=== PATIENT | female | born 1940 | race Caucasian/White ===

== ENCOUNTER 2017-03-28 14:21 | Emergency (ER) | payer MEDICARE ==
[~2017-03-28] VITALS: Ht 147.3 cm; Wt 50.0 kg
[~2017-03-28 14:21] MED LIST: ADLT ASA LOW81 MG PO; BENAZEPRIL40 M1 PO; ELAVIL50 MG PO; MAXZIDE-25MG1 COMBO PO; TENORMIN50 MG PO
[2017-03-28 15:02] LABS: HEMATOCRIT 47.2 % (37.0-47.0); HEMOGLOBIN 15.5 g/dl (12.0-16.0); IMMATURE GRANULOCYTES 0.3 % (0.0-1.0); MEAN CELL VOLUME 92.7 fL CALC (80.0-100.0); MEAN CORPUSCULAR HGB 30.5 pG CALC (26.0-32.0); MEAN CORPUSCULAR HGB CONC 32.8 g/L CALC (32.0-36.0); NEUT# 6.93 thou/uL (2.00-7.15); RED BLOOD COUNT 5.09 mill/uL (4.20-5.60); RED CELL DISTRI WIDTH 12.8 % (11.5-15.5)
[2017-03-28 15:43] LABS: ALBUMIN 3.6 g/dL (3.2-5.0); ALKALINE PHOSPHATASE 74 u/l (38-126); AMYLASE 71 u/l (30-110); ANION GAP 14 (6-22 (CALC)); BILIRUBIN, TOTAL 0.5 mg/dL (0.0-1.4); BUN 17 mg/dL (8-23); BUN/CREATININE RATIO 18 (12-20 (CALC)); CARBON DIOXIDE 25 mmol/l (22-30); CHLORIDE 106 mmol/l (95-108); GFR 54 ML/MIN (>=60 (CALC)); GFR FOR AFR.AMER. > 60 ML/MIN (>=60 (CALC)); GLUCOSE 86 mg/dL (82-115); LIPASE 81 u/l (23-300); POTASSIUM 4.3 mmol/l (3.5-5.1); SGOT/AST 33 u/l (9-36); SGPT/ALT 34 u/l (11-66); SODIUM 141 mmol/l (137-146); TOTAL PROTEIN 6.3 g/dL (6.3-8.2)
[2017-03-28 15:55] LABS: MYOGLOBIN 61 ng/mL (0 - 62)
[2017-03-28] MEDS ORDERED: ZOFRAN ODT4 MG PO (15:57)
[2017-03-28] MEDS ORDERED: CIPROFLOXACN500 MG PO (17:37)
[2017-03-28] MEDS ORDERED: METRONIDAZOL500 MG PO (17:37)
[2017-03-28 17:41] VITALS: BP 137/74
== END 2017-03-28 17:58 | disposition home or self-care (01) ==
LOC: ED 14:21
PROVIDERS: Emergency Medicine
DX: K57.92 Diverticulitis of intestine, part unspecified, without perforation or abscess without bleeding (principal); K52.9 Noninfective gastroenteritis and colitis, unspecified; R11.2 Nausea with vomiting, unspecified; R10.32 Left lower quadrant pain; I10 Essential (primary) hypertension

== ENCOUNTER 2021-05-17 13:47 | Observation (INO) | payer MEDICARE ==
[~2021-05-17 13:47] MED LIST changes: +CIPROFLOXACN500 MG PO; +LOMOTIL2.5 MG PO; +METRONIDAZOL500 MG PO; +ZOFRAN ODT4 MG PO
--- NOTE | 2021-05-17 13:48 | NUR ---
PT TO ROOM FOR TRIAGE VIA EMS STRETCHER.
--- NOTE | 2021-05-17 14:45 | NUR ---
PT RESTING. STABLE ON MONITOR. NO CONCERNS VOICED. CALL LIGHT WITHIN REACH.
[2021-05-17 15:22] LABS: HEMATOCRIT 40.5 % (37.0-47.0); IMMATURE GRANULOCYTES 0.2 % (0.0-5.0); MEAN CELL VOLUME 94.6 fL CALC (80.0-100.0); MEAN CORPUSCULAR HGB 30.4 pG CALC (26.0-32.0); MEAN CORPUSCULAR HGB CONC 32.1 g/dL CAL (32.0-36.0); NEUT# 11.05 thou/uL (2.00-7.15); RED BLOOD COUNT 4.28 mill/uL (4.20-5.60); RED CELL DISTRI WIDTH 12.5 % (11.5-15.5)
[2021-05-17 15:42] LABS: ALBUMIN 3.6 g/dL (3.2-5.0); ALKALINE PHOSPHATASE 95 u/l (38-126); BUN 33 mg/dL (8-23); BUN/CREATININE RATIO 18 (12-20 (CALC)); CARBON DIOXIDE 27 mmol/l (22-30); CHLORIDE 103 mmol/l (95-108); CREATININE 1.8 mg/dL (0.5-1.0); ETHYL ALCOHOL 0 mg/dl (0-30); GFR 27 ML/MIN (>=60 (CALC)); GFR FOR AFR.AMER. 33 ML/MIN (>=60 (CALC)); LIPASE 97 u/l (23-300); SGOT/AST 30 u/l (9-36); SODIUM 137 mmol/l (137-146); TOTAL PROTEIN 6.4 g/dL (6.3-8.2)
[2021-05-17 15:49] LABS: ACT PARTIAL THROMBO TIME 21.7 SECONDS (20.0-32.5); INTERNATIONAL NORMALIZED RATIO 1.1 RATIO (0.7-1.3)
--- NOTE | 2021-05-17 15:52 | NUR ---
PT RESTING. NO DISTRESS. CALL LIGHT WITHIN REACH.
[2021-05-17 16:03] LABS: ANION GAP 11 (6-22 (CALC)); BILIRUBIN, TOTAL 0.4 mg/dL (0.0-1.4); POTASSIUM 4.4 mmol/l (3.5-5.1)
[2021-05-17] MEDS ORDERED: XANAX0.5 MG PO (16:27)
[2021-05-17 16:33] LABS: URINE BILIRUBIN - DIPSTICK NEGATIVE (NEGATIVE); URINE BLOOD DIPSTICK NEGATIVE (NEGATIVE); URINE COLOR YELLOW; URINE GLUCOSE - DIPSTICK NEGATIVE (NEGATIVE); URINE KETONE NEGATIVE (NEGATIVE); URINE PH 6.5 (4.5-8.0); URINE PROTEIN - DIPSTICK NEGATIVE (NEG-TRACE); URINE SPECIFIC GRAVITY 1.025; URINE UROBILINOGEN - DIPSTICK 0.2 E.U./dL (0.2)
[2021-05-17 16:35] LABS: URINE LEUK ESTERASE SMALL (NEGATIVE); URINE NITRITE - DIPSTICK NEGATIVE (Negative)
[2021-05-17 16:43] LABS: URINE RBC 0-2 RBC/hpf (0-5); URINE SQUAMOUS EPITHELIAL CELL FEW EPI/hpf (0-FEW)
--- NOTE | 2021-05-17 16:50 | NUR ---
IV MEDS INFUSING WITHOUT DIFFICULTY.
--- NOTE | 2021-05-17 17:44 | NUR ---
PT UP TO BEDSIDE COMMODE WITH MINIAML ASSISTANCE. PENDING ADMISSION.
--- NOTE | 2021-05-17 18:40 | NUR ---
NO CHANGES. PT REMAINS STABLE. NO CONCERNS VOICED.
--- NOTE | 2021-05-17 20:44 | NUR ---
PT AGREES WITH PLAN FOR ADMISSION. TELE BOX [id number] IN USE. FLOOR NURSE NOT AVAILABLE FOR REPORT.
--- NOTE | 2021-05-17 21:00 | NUR ---
REGULAR MEAL GIVEN
--- NOTE | 2021-05-17 21:59 | NUR ---
PT ASSISTED UP TO BSC TO VOID AND BACK TO STRETCHER. CALL GONZALEZ WITHIN REACH, AGREES TO CALL PRN.
--- NOTE | 2021-05-17 22:54 | NUR ---
REPORT GIVEN TO MARCOS TOVAR FOR ADMIT TO FLOOR.
--- NOTE | 2021-05-17 23:01 | NUR ---
Admission Note Report Given to: GUY RN Transported by: X Wheelchair Stretcher Transported with: X Nurse Transporter X Patent IV O2 X Concrete Building Assembler Location: ICU X MS2
--- NOTE | 2021-05-17 23:03 | NUR ---
Admission Note Report Given to: GUY Transported by: X Wheelchair Stretcher Transported with: X Nurse Transporter X Patent IV O2 X Environmental Journalist Location: ICU X MS2
[2021-05-17 23:30] VITALS: BP 149/80
[2021-05-18] VITALS (8 sets, daily range): BP systolic 105–132; BP diastolic 65–77
--- NOTE | 2021-05-18 | NUR ---
Received Pt from ER, Ms. Dayan HOWARD-RN. Pt refused any pain. Vitals are stable. Educated Pt about rules from Med Surg Unit, visitors hours. Educated PT about plan of care, falls and safety precautions.
--- NOTE | 2021-05-18 04:06 | NUR ---
Hourly Rounding provided. Pt observed awake and calm. No complaint about pain at this time. Re- Educated about plan of care.
[2021-05-18 06:53] LABS: CHOLESTEROL HDL RATIO 3.4 (<4.4 (CALC)); MAGNESIUM 1.7 mg/dL (1.6-2.3)
[2021-05-18] MEDS ORDERED: FLUOXETINE20 MG PO (07:31)
--- NOTE | 2021-05-18 07:47 | NUR ---
PT IN BED WHEN ENTERING ROOM. PT IS ALERT AND ORIENTED. VITALS AND ASSESSMENT DONE. S1 AND S2 HEARD UPON ASCULTATION. BOWEL SOUNDS ACTIVE IN ALL 4 QUADRANTS. LUNGS CLEAR. SKIN WARM AND DRY. PEDAL PULSES BILATERALLY STRONG. IV PATENT AND HEALTHY. NO PAIN REPORTED AT THIS TIME. CALL LIGHT WITHIN REACH.
--- NOTE | 2021-05-18 12:00 | NUR ---
PT IN BED. NO DISTRESS NOTED. CALL LIGHT WITHIN REACH.
--- NOTE | 2021-05-18 16:00 | NUR ---
PT IN BED. NO DISTRESS NOTED. CALL LIGHT WITHIN REACH.
[2021-05-19 00:28] VITALS: BP 136/78
[2021-05-19 04:40] VITALS: BP 147/80
--- NOTE | 2021-05-19 05:33 | NUR ---
05/18/212029 PATIENT SITTING AT BEDSIDE. ASSESSMENT COMPLETE. DENIES PAIN AT THIS TIME. HOWEVER EXPRESSES SHE HAD NOT SLEPT THE PREVIOUS NIGHT AND WOULD LIKE MEDICATION FOR SLEEP. PATIENT HAS SONATA. CALL LIGHT WITHIN REACH. BED IN LOW POSITION. BSC WITHIN REACH. EDUCATION PROVIDED FOR MEDICATION SONATA AND FALL RISK. PATIENT INSTRUCTED TO CALL FOR ASSISTANCE FOR BEDSIDE COMMODE. VERBALIZES UNDERSTANDING, NO CONCERNS EXPRESSED.
[2021-05-19 06:59] LABS: CREATININE 1.1 mg/dL (0.5-1.0); MAGNESIUM 1.5 mg/dL (1.6-2.3)
[2021-05-19 07:05] LABS: HEMATOCRIT 39.9 % (37.0-47.0); HEMOGLOBIN 12.9 g/dl (12.0-16.0); MEAN CELL VOLUME 94.5 fL CALC (80.0-100.0); MEAN CORPUSCULAR HGB 30.6 pG CALC (26.0-32.0); MEAN CORPUSCULAR HGB CONC 32.3 g/dL CAL (32.0-36.0); RED BLOOD COUNT 4.22 mill/uL (4.20-5.60); RED CELL DISTRI WIDTH 12.4 % (11.5-15.5)
[2021-05-19 07:07] LABS: POTASSIUM 3.4 mmol/l (3.5-5.1)
--- NOTE | 2021-05-19 07:10 | NUR ---
REPORT FROM CARLOS RODRÍGUEZ. PT NOTED RESTING IN BED. NO APPARENT DISTRESS NOTED. PT C/O MILD NAUSEA, GINGERALE PROVIDED. PT DENIES ANY PAIN OR DIZZINESS. IV SITE APPEARS HEALTHY WITH IVF INFUSING. CONSERVATION WORKER IN PLACE. DISCUSSED POC. PT VERBALIZED UNDERSTANDING. CALL LIGHT WITHIN REACH. WILL CONTINUE TO MONITOR.
[2021-05-19 07:50] VITALS: BP 152/77
--- NOTE | 2021-05-19 09:22 | NUR ---
MEDICATED FOR NAUSEA AT THIS TIME. PT REQUEST TO WAIT UNTIL NAUSEA RESOLVES PRIOR TO TAKING MORNING MEDICATIONS. WILL CONTINUE TO MONITOR.
--- NOTE | 2021-05-19 10:07 | NUR ---
NAUSEA RESOLVED, AM MEDICATIONS ADMINISTERED. PT SITTING UP EATING BREAKFAST AT THIS TIME. NO CURRENT WANTS OR NEEDS. NO APPARENT DISTRESS NOTED. CALL LIGHT WITHIN REACH. WILL CONTINUE TO MONITOR.
[2021-05-19 10:56] VITALS: BP 142/72
[2021-05-19] MEDS ORDERED: AMLODIPINE BESYL5 MG PO (11:28)
--- NOTE | 2021-05-19 14:18 | NUR ---
Pt seen for treatment this pm. She was resting in bed without complaints voice. She ambulated in room with supervision and assist with IV pole into BR to urinate. She ambulated 4 x 60' in hallway with superivion and no device. No LOB noted. Pt instructed in and performed balance activities with support of foot of bed as needed. Exercises included up on toes, SLS, tandum stand Rhomberg. Left resting in bed with call knowles and bedside tray in reach. [facility], home health.
[2021-05-19 15:07] VITALS: BP 140/75
--- NOTE | 2021-05-19 15:23 | NUR ---
IV site discontinued, cath intact. No edema , no redness, voices no discomfort.
== END 2021-05-19 15:49 ==
LOC: ED 13:47 → ED-I 16:50 → ED 17:09 → MS2 17:10
PROVIDERS: Nurse Practitioner; ADMIT Internal Medicine; ATTEND Internal Medicine
DX: R55 Syncope and collapse (principal); N17.9 Acute kidney failure, unspecified; E86.0 Dehydration; I10 Essential (primary) hypertension; M17.0 Bilateral primary osteoarthritis of knee; E78.5 Hyperlipidemia, unspecified; F41.9 Anxiety disorder, unspecified; F32.9 Major depressive disorder, single episode, unspecified; Z20.822 Contact with and (suspected) exposure to COVID-19
CPT/HCPCS: G0378; J3475

== ENCOUNTER 2021-09-08 12:53 | Emergency (ER) | payer MEDICARE ==
[~2021-09-08] VITALS: Ht 147.3 cm; Wt 45.0 kg
[~2021-09-08 12:53] MED LIST changes: +AMLODIPINE BESYL5 MG PO; +FLUOXETINE20 MG PO; +XANAX0.5 MG PO
[2021-09-08 13:36] LABS: IMMATURE GRANULOCYTES 0.1 % (0.0-5.0); MEAN CELL VOLUME 92.8 fL CALC (80.0-100.0); MEAN CORPUSCULAR HGB CONC 31.2 g/dL CAL (32.0-36.0); NEUT# 5.37 thou/uL (2.00-7.15); RED BLOOD COUNT 5.14 mill/uL (4.20-5.60); RED CELL DISTRI WIDTH 12.1 % (11.5-15.5)
[2021-09-08 13:38] LABS: HEMATOCRIT 47.7 % (37.0-47.0); HEMOGLOBIN 14.9 g/dl (12.0-16.0)
[2021-09-08 13:48] LABS: ALBUMIN 4.1 g/dL (3.2-5.0); ALKALINE PHOSPHATASE 117 u/l (38-126); BUN 13 mg/dL (8-23); BUN/CREATININE RATIO 12 (12-20 (CALC)); CHLORIDE 100 mmol/l (95-108); CREATININE 1.1 mg/dL (0.5-1.0); GFR 48 ML/MIN (>=60 (CALC)); GFR FOR AFR.AMER. 58 ML/MIN (>=60 (CALC)); POTASSIUM 3.4 mmol/l (3.5-5.1); SGOT/AST 32 u/l (9-36); SODIUM 141 mmol/l (137-146)
[2021-09-08 13:51] LABS: D-DIMER 0.81 mg/L (0.19-0.60)
[2021-09-08 13:59] LABS: ACT PARTIAL THROMBO TIME 23.1 SECONDS (20.0-32.5); INTERNATIONAL NORMALIZED RATIO 1.1 RATIO (0.7-1.3)
[2021-09-08 14:01] LABS: ANION GAP 10 (6-22 (CALC)); BILIRUBIN, TOTAL 0.7 mg/dL (0.0-1.4); CARBON DIOXIDE 34 mmol/l (22-30); TOTAL PROTEIN 7.7 g/dL (6.3-8.2)
[2021-09-08 14:33] LABS: URINE BILIRUBIN - DIPSTICK NEGATIVE (NEGATIVE); URINE BLOOD DIPSTICK TRACE-LYSED (NEGATIVE); URINE COLOR YELLOW; URINE GLUCOSE - DIPSTICK NEGATIVE (NEGATIVE); URINE KETONE NEGATIVE (NEGATIVE); URINE PROTEIN - DIPSTICK NEGATIVE (NEG-TRACE); URINE SPECIFIC GRAVITY 1.015; URINE UROBILINOGEN - DIPSTICK 0.2 E.U./dL (0.2)
[2021-09-08 14:35] LABS: URINE LEUK ESTERASE MODERATE (NEGATIVE); URINE NITRITE - DIPSTICK NEGATIVE (Negative)
[2021-09-08 14:51] LABS: URINE RBC 0-2 RBC/hpf (0-5); URINE SQUAMOUS EPITHELIAL CELL MODERATE EPI/hpf (0-FEW)
[2021-09-08 16:10] VITALS: BP 187/90
== END 2021-09-08 16:10 | disposition home or self-care (01) ==
LOC: ED 12:53
PROVIDERS: Physician Assistant Surgical
DX: R00.2 Palpitations (principal); I10 Essential (primary) hypertension

== ENCOUNTER 2021-12-28 07:03 | Emergency (ER) | payer MEDICARE ==
[~2021-12-28] VITALS: Ht 147.3 cm; Wt 70.0 kg
[2021-12-28] VITALS (29 sets, daily range): BP systolic 130–178; BP diastolic 76–109
[2021-12-28 07:40] LABS: HEMOGLOBIN 14.4 g/dl (12.0-16.0); IMMATURE GRANULOCYTES 0.2 % (0.0-5.0); MEAN CELL VOLUME 92.1 fL CALC (80.0-100.0); MEAN CORPUSCULAR HGB 30.1 pG CALC (26.0-32.0); MEAN CORPUSCULAR HGB CONC 32.7 g/dL CAL (32.0-36.0); NEUT# 8.04 thou/uL (2.00-7.15); RED BLOOD COUNT 4.78 mill/uL (4.20-5.60); RED CELL DISTRI WIDTH 12.5 % (11.5-15.5)
[2021-12-28 08:00] LABS: ALBUMIN 3.7 g/dL (3.2-5.0); BILIRUBIN, TOTAL 0.6 mg/dL (0.0-1.4); CREATININE 1.1 mg/dL (0.5-1.0); POTASSIUM 3.3 mmol/l (3.5-5.1); TOTAL PROTEIN 6.5 g/dL (6.3-8.2)
[2021-12-28 08:40] LABS: URINE BILIRUBIN - DIPSTICK NEGATIVE (NEGATIVE); URINE BLOOD DIPSTICK NEGATIVE (NEGATIVE); URINE COLOR YELLOW; URINE GLUCOSE - DIPSTICK NEGATIVE (NEGATIVE); URINE KETONE NEGATIVE (NEGATIVE); URINE LEUK ESTERASE NEGATIVE (NEGATIVE); URINE PROTEIN - DIPSTICK 30 mg/dL (NEG-TRACE); URINE SPECIFIC GRAVITY 1.015; URINE UROBILINOGEN - DIPSTICK 0.2 E.U./dL (0.2)
[2021-12-28 08:44] LABS: URINE NITRITE - DIPSTICK NEGATIVE (Negative)
== END 2021-12-28 14:40 | disposition short-term general hospital (02) ==
LOC: ED 07:03
PROVIDERS: Family Medicine
DX: K44.9 Diaphragmatic hernia without obstruction or gangrene (principal); I10 Essential (primary) hypertension; Z91.041 Radiographic dye allergy status
CPT/HCPCS: Q9967

== ENCOUNTER 2022-01-04 19:11 | Observation (INO) | payer MEDICARE ==
[~2022-01-04] VITALS: Ht 147.3 cm; Wt 45.9 kg
[2022-01-04] VITALS (8 sets, daily range): BP systolic 163–184; BP diastolic 82–95
[~2022-01-04 19:11] MED LIST changes: +BENAZEPRIL20 M1 PO; -BENAZEPRIL40 M1 PO
[2022-01-05 03:59] VITALS: BP 187/92
[2022-01-05 05:15] VITALS: BP 150/80
[2022-01-05] MEDS ORDERED: OXYCODONE5 M1 PO (07:35)
[2022-01-05] MEDS ORDERED: SEROQUEL25 MG PO (07:36)
[2022-01-05] MEDS ORDERED: HYDROCHLOROT12.5 M1 PO (07:37)
[2022-01-05] MEDS ORDERED: TRAZODONE50 MG PO (07:37)
[2022-01-05 08:00] VITALS: BP 136/73
[2022-01-05 15:24] VITALS: BP 166/84
== END 2022-01-05 18:05 | disposition home or self-care (01) ==
LOC: ED 19:11 → ED-I 20:20 → ED 20:46 → MS2 20:47
PROVIDERS: ADMIT Hospitalist; ATTEND Hospitalist
DX: K56.41 Fecal impaction (principal); I10 Essential (primary) hypertension; E78.5 Hyperlipidemia, unspecified; F41.9 Anxiety disorder, unspecified; F32.A Depression, unspecified; Z98.890 Other specified postprocedural states; Z20.822 Contact with and (suspected) exposure to COVID-19
CPT/HCPCS: G0378

== ENCOUNTER 2022-04-07 09:06 | Emergency (ER) | payer MEDICARE ==
[~2022-04-07] VITALS: Ht 147.3 cm; Wt 40.1 kg
[~2022-04-07 09:06] MED LIST changes: +HYDROCHLOROT12.5 M1 PO; +OXYCODONE5 M1 PO; +SEROQUEL25 MG PO; +TRAZODONE50 MG PO
[2022-04-07 09:51] LABS: GFR FOR AFR.AMER. > 60 ML/MIN (>=60 (CALC)); GFR OTHER RACES 60 ML/MIN (>=60 (CALC))
[2022-04-07 09:53] LABS: HEMATOCRIT 46.6 % (37.0-47.0); HEMOGLOBIN 14.6 g/dl (12.0-16.0); IMMATURE GRANULOCYTES 0.4 % (0.0-5.0); MEAN CELL VOLUME 96.1 fL CALC (80.0-100.0); MEAN CORPUSCULAR HGB 30.1 pG CALC (26.0-32.0); MEAN CORPUSCULAR HGB CONC 31.3 g/dL CAL (32.0-36.0); NEUT# 5.82 thou/uL (2.00-7.15); RED BLOOD COUNT 4.85 mill/uL (4.20-5.60); RED CELL DISTRI WIDTH 12.8 % (11.5-15.5)
[2022-04-07 10:10] LABS: ALBUMIN 3.7 g/dL (3.2-5.0); ALKALINE PHOSPHATASE 110 u/l (38-126); ANION GAP 9 (6-22 (CALC)); BILIRUBIN, TOTAL 0.3 mg/dL (0.0-1.4); BUN 16 mg/dL (8-23); BUN/CREATININE RATIO 19 (12-20 (CALC)); CARBON DIOXIDE 31 mmol/l (22-30); CHLORIDE 98 mmol/l (95-108); CREATININE 0.8 mg/dL (0.5-1.0); GFR FOR AFR.AMER. > 60 ML/MIN (>=60 (CALC)); GFR OTHER RACES > 60 ML/MIN (>=60 (CALC)); POTASSIUM 3.3 mmol/l (3.5-5.1); SGOT/AST 34 u/l (9-36); SODIUM 134 mmol/l (137-146); TOTAL PROTEIN 6.7 g/dL (6.3-8.2)
[2022-04-07] MEDS ORDERED: MAXZIDE-25MG1 COMBO PO (10:31)
[2022-04-07] MEDS ORDERED: ENSURE (10:31)
[2022-04-07] MEDS ORDERED: BL GAS RELIE125 MG PO (10:32)
[2022-04-07 11:20] VITALS: BP 154/77
[2022-04-07 11:22] LABS: URINE BILIRUBIN - DIPSTICK NEGATIVE (NEGATIVE); URINE BLOOD DIPSTICK NEGATIVE (NEGATIVE); URINE COLOR YELLOW; URINE GLUCOSE - DIPSTICK NEGATIVE (NEGATIVE); URINE KETONE NEGATIVE (NEGATIVE); URINE LEUK ESTERASE TRACE (NEGATIVE); URINE PROTEIN - DIPSTICK NEGATIVE (NEG-TRACE); URINE SPECIFIC GRAVITY 1.015; URINE UROBILINOGEN - DIPSTICK 0.2 E.U./dL (0.2)
[2022-04-07 11:24] LABS: URINE NITRITE - DIPSTICK NEGATIVE (Negative)
== END 2022-04-07 11:21 | disposition short-term general hospital (02) ==
LOC: ED 09:06
PROVIDERS: Family Medicine
DX: R06.02 Shortness of breath (principal); R94.31 Abnormal electrocardiogram [ECG] [EKG]; I11.0 Hypertensive heart disease with heart failure; I50.9 Heart failure, unspecified; Z91.041 Radiographic dye allergy status; Z20.822 Contact with and (suspected) exposure to COVID-19

== ENCOUNTER 2022-04-16 18:14 | Observation (INO) | payer MEDICARE ==
[~2022-04-16] VITALS: Ht 147.3 cm; Wt 41.0 kg
[~2022-04-16 18:14] MED LIST changes: +BL GAS RELIE125 MG PO; +ENSURE
[2022-04-16 19:43] LABS: HEMATOCRIT 48.3 % (37.0-47.0); HEMOGLOBIN 16.2 g/dl (12.0-16.0); IMMATURE GRANULOCYTES 0.3 % (0.0-5.0); MEAN CORPUSCULAR HGB 30.1 pG CALC (26.0-32.0); MEAN CORPUSCULAR HGB CONC 33.5 g/dL CAL (32.0-36.0); NEUT# 7.22 thou/uL (2.00-7.15); RED BLOOD COUNT 5.39 mill/uL (4.20-5.60); RED CELL DISTRI WIDTH 12.1 % (11.5-15.5)
[2022-04-16 19:44] LABS: MEAN CELL VOLUME 89.6 fL CALC (80.0-100.0)
[2022-04-16 20:05] LABS: ALBUMIN 4.1 g/dL (3.2-5.0); ALKALINE PHOSPHATASE 124 u/l (38-126); AMYLASE 86 u/l (30-110); BUN 15 mg/dL (8-23); BUN/CREATININE RATIO 17 (12-20 (CALC)); CARBON DIOXIDE 31 mmol/l (22-30); CREATININE 0.9 mg/dL (0.5-1.0); GFR FOR AFR.AMER. > 60 ML/MIN (>=60 (CALC)); GFR OTHER RACES 60 ML/MIN (>=60 (CALC)); LIPASE 44 u/l (23-300); POTASSIUM 3.8 mmol/l (3.5-5.1); SGOT/AST 39 u/l (9-36); TOTAL PROTEIN 7.2 g/dL (6.3-8.2)
[2022-04-16 20:11] LABS: ANION GAP 12 (6-22 (CALC)); BILIRUBIN, TOTAL 0.8 mg/dL (0.0-1.4); CHLORIDE 86 mmol/l (95-108); SODIUM 125 mmol/l (137-146)
[2022-04-16 20:15] LABS: MYOGLOBIN 95 ng/mL (0 - 62)
[2022-04-16 21:51] LABS: URINE BILIRUBIN - DIPSTICK NEGATIVE (NEGATIVE); URINE BLOOD DIPSTICK NEGATIVE (NEGATIVE); URINE COLOR YELLOW; URINE GLUCOSE - DIPSTICK NEGATIVE (NEGATIVE); URINE KETONE TRACE mg/dL (NEGATIVE); URINE LEUK ESTERASE NEGATIVE (NEGATIVE); URINE PROTEIN - DIPSTICK NEGATIVE (NEG-TRACE); URINE SPECIFIC GRAVITY 1.015; URINE UROBILINOGEN - DIPSTICK 0.2 E.U./dL (0.2)
[2022-04-16 21:52] LABS: URINE NITRITE - DIPSTICK NEGATIVE (Negative)
[2022-04-16] MEDS ORDERED: ONDANSETRON4 MG PO (23:40)
[2022-04-16] MEDS ORDERED: LORTAB 1010 MG PO (23:40)
[2022-04-16] MEDS ORDERED: PREVACID30 M3 PO (23:40)
[2022-04-17 01:18] VITALS: BP 150/74
[2022-04-17 04:35] VITALS: BP 151/80
[2022-04-17 05:57] LABS: HEMATOCRIT 42.8 % (37.0-47.0); HEMOGLOBIN 14.6 g/dl (12.0-16.0); MEAN CELL VOLUME 87.2 fL CALC (80.0-100.0); MEAN CORPUSCULAR HGB 29.7 pG CALC (26.0-32.0); MEAN CORPUSCULAR HGB CONC 34.1 g/dL CAL (32.0-36.0); RED BLOOD COUNT 4.91 mill/uL (4.20-5.60); RED CELL DISTRI WIDTH 12.4 % (11.5-15.5)
[2022-04-17 06:23] LABS: ANION GAP 10 (6-22 (CALC)); BUN 12 mg/dL (8-23); BUN/CREATININE RATIO 17 (12-20 (CALC)); CARBON DIOXIDE 30 mmol/l (22-30); CHLORIDE 90 mmol/l (95-108); CREATININE 0.7 mg/dL (0.5-1.0); GFR FOR AFR.AMER. > 60 ML/MIN (>=60 (CALC)); GFR OTHER RACES > 60 ML/MIN (>=60 (CALC)); POTASSIUM 3.4 mmol/l (3.5-5.1); SODIUM 126 mmol/l (137-146)
[2022-04-17 07:13] VITALS: BP 124/68
[2022-04-17] MEDS ORDERED: PANTOPRAZOLE SO40 M1 PO (14:41)
[2022-04-17 14:49] VITALS: BP 124/68
== END 2022-04-17 16:48 | disposition home or self-care (01) ==
LOC: ED 18:14 → ED-I 04-17 00:23 → ED 04-17 00:32 → MS2 04-17 00:33
PROVIDERS: Emergency Medicine; ADMIT Hospitalist; ATTEND Hospitalist
DX: K21.9 Gastro-esophageal reflux disease without esophagitis (principal); E87.1 Hypo-osmolality and hyponatremia; I11.0 Hypertensive heart disease with heart failure; I50.9 Heart failure, unspecified; I25.10 Atherosclerotic heart disease of native coronary artery without angina pectoris; E78.5 Hyperlipidemia, unspecified; F41.9 Anxiety disorder, unspecified; F32.A Depression, unspecified; T47.1X6A Underdosing of other antacids and anti-gastric-secretion drugs, initial encounter; Z91.128 Patient's intentional underdosing of medication regimen for other reason; Z98.890 Other specified postprocedural states
CPT/HCPCS: Q9967; S0164

== ENCOUNTER 2022-04-22 11:06 | Inpatient (IN) | payer MEDICARE ==
[2022-04-22] VITALS (19 sets, daily range): BP systolic 120–190; BP diastolic 66–92
[~2022-04-22] VITALS: Ht 147.3 cm; Wt 54.0 kg
[~2022-04-22 11:06] MED LIST changes: +LORTAB 1010 MG PO; +ONDANSETRON4 MG PO; +PANTOPRAZOLE SO40 M1 PO; +PREVACID30 M3 PO
[2022-04-22 11:40] LABS: HEMATOCRIT 47.3 % (37.0-47.0); IMMATURE GRANULOCYTES 0.3 % (0.0-5.0); MEAN CELL VOLUME 88.7 fL CALC (80.0-100.0); MEAN CORPUSCULAR HGB CONC 33.8 g/dL CAL (32.0-36.0); NEUT# 7.43 thou/uL (2.00-7.15); RED BLOOD COUNT 5.33 mill/uL (4.20-5.60); RED CELL DISTRI WIDTH 12.3 % (11.5-15.5)
[2022-04-22 11:57] LABS: ALBUMIN 3.9 g/dL (3.2-5.0); ALKALINE PHOSPHATASE 113 u/l (38-126); ANION GAP 11 (6-22 (CALC)); BILIRUBIN, TOTAL 0.5 mg/dL (0.0-1.4); BUN 17 mg/dL (8-23); BUN/CREATININE RATIO 17 (12-20 (CALC)); CARBON DIOXIDE 31 mmol/l (22-30); CHLORIDE 88 mmol/l (95-108); GFR FOR AFR.AMER. > 60 ML/MIN (>=60 (CALC)); GFR OTHER RACES 53 ML/MIN (>=60 (CALC)); LIPASE 106 u/l (23-300); POTASSIUM 3.6 mmol/l (3.5-5.1); SGOT/AST 33 u/l (9-36); SODIUM 126 mmol/l (137-146); TOTAL PROTEIN 6.7 g/dL (6.3-8.2)
[2022-04-22] MEDS ORDERED: PROTONIX40 M2 PO (14:14)
[2022-04-22] MEDS ORDERED: AMLODIPINE BESYL5 MG PO (14:16)
[2022-04-22] MEDS ORDERED: LEXAPRO5 MG PO (14:17)
[2022-04-22] MEDS ORDERED: ATENOLOL50 MG PO (14:17)
[2022-04-23 00:21] VITALS: BP 180/81
[2022-04-23 04:17] VITALS: BP 161/80
[2022-04-23 05:34] LABS: HEMATOCRIT 44.4 % (37.0-47.0); HEMOGLOBIN 15.2 g/dl (12.0-16.0); MEAN CELL VOLUME 88.8 fL CALC (80.0-100.0); MEAN CORPUSCULAR HGB 30.4 pG CALC (26.0-32.0); MEAN CORPUSCULAR HGB CONC 34.2 g/dL CAL (32.0-36.0); RED CELL DISTRI WIDTH 12.4 % (11.5-15.5)
[2022-04-23 05:53] LABS: ANION GAP 8 (6-22 (CALC)); BUN 17 mg/dL (8-23); BUN/CREATININE RATIO 19 (12-20 (CALC)); CARBON DIOXIDE 30 mmol/l (22-30); CHLORIDE 93 mmol/l (95-108); CREATININE 0.9 mg/dL (0.5-1.0); GFR FOR AFR.AMER. > 60 ML/MIN (>=60 (CALC)); GFR OTHER RACES 60 ML/MIN (>=60 (CALC)); POTASSIUM 3.8 mmol/l (3.5-5.1); SODIUM 127 mmol/l (137-146)
[2022-04-23 05:55] LABS: MAGNESIUM 1.9 mg/dL (1.6-2.3)
[2022-04-23 06:10] VITALS: BP 145/81
[2022-04-23 10:34] LABS: URINE BILIRUBIN - DIPSTICK NEGATIVE (NEGATIVE); URINE BLOOD DIPSTICK NEGATIVE (NEGATIVE); URINE COLOR YELLOW; URINE GLUCOSE - DIPSTICK NEGATIVE (NEGATIVE); URINE KETONE NEGATIVE (NEGATIVE); URINE LEUK ESTERASE SMALL (NEGATIVE); URINE NITRITE - DIPSTICK NEGATIVE (Negative); URINE PROTEIN - DIPSTICK NEGATIVE (NEG-TRACE); URINE UROBILINOGEN - DIPSTICK 0.2 E.U./dL (0.2)
[2022-04-23 10:40] LABS: URINE RBC 0-2 RBC/hpf (0-5)
[2022-04-23 14:02] VITALS: BP 133/76
[2022-04-23 18:44] VITALS: BP 138/71
[2022-04-24] VITALS (9 sets, daily range): BP systolic 103–165; BP diastolic 55–84
[2022-04-24 06:02] LABS: HEMATOCRIT 40.6 % (37.0-47.0); HEMOGLOBIN 13.7 g/dl (12.0-16.0); MEAN CELL VOLUME 89.6 fL CALC (80.0-100.0); MEAN CORPUSCULAR HGB 30.2 pG CALC (26.0-32.0); MEAN CORPUSCULAR HGB CONC 33.7 g/dL CAL (32.0-36.0); RED BLOOD COUNT 4.53 mill/uL (4.20-5.60); RED CELL DISTRI WIDTH 12.4 % (11.5-15.5)
[2022-04-24 06:06] LABS: ANION GAP 5 (6-22 (CALC)); BUN 10 mg/dL (8-23); BUN/CREATININE RATIO 16 (12-20 (CALC)); CARBON DIOXIDE 32 mmol/l (22-30); CHLORIDE 97 mmol/l (95-108); CREATININE 0.6 mg/dL (0.5-1.0); GFR FOR AFR.AMER. > 60 ML/MIN (>=60 (CALC)); GFR OTHER RACES > 60 ML/MIN (>=60 (CALC)); MAGNESIUM 1.9 mg/dL (1.6-2.3); POTASSIUM 3.5 mmol/l (3.5-5.1); SODIUM 131 mmol/l (137-146)
[2022-04-25] VITALS (8 sets, daily range): BP systolic 84–161; BP diastolic 44–82
[2022-04-25 04:56] LABS: HEMATOCRIT 39.2 % (37.0-47.0); MEAN CELL VOLUME 90.7 fL CALC (80.0-100.0); MEAN CORPUSCULAR HGB 30.1 pG CALC (26.0-32.0); MEAN CORPUSCULAR HGB CONC 33.2 g/dL CAL (32.0-36.0); RED BLOOD COUNT 4.32 mill/uL (4.20-5.60); RED CELL DISTRI WIDTH 12.6 % (11.5-15.5)
[2022-04-25 05:11] LABS: ANION GAP 5 (6-22 (CALC)); BUN 5 mg/dL (8-23); BUN/CREATININE RATIO 9 (12-20 (CALC)); CARBON DIOXIDE 31 mmol/l (22-30); CHLORIDE 98 mmol/l (95-108); CREATININE 0.6 mg/dL (0.5-1.0); GFR FOR AFR.AMER. > 60 ML/MIN (>=60 (CALC)); GFR OTHER RACES > 60 ML/MIN (>=60 (CALC)); MAGNESIUM 1.6 mg/dL (1.6-2.3); POTASSIUM 3.4 mmol/l (3.5-5.1); SODIUM 131 mmol/l (137-146)
[2022-04-26] VITALS (8 sets, daily range): BP systolic 135–158; BP diastolic 66–81
[2022-04-26 06:39] LABS: HEMATOCRIT 40.9 % (37.0-47.0); HEMOGLOBIN 13.4 g/dl (12.0-16.0); MEAN CELL VOLUME 91.5 fL CALC (80.0-100.0); MEAN CORPUSCULAR HGB CONC 32.8 g/dL CAL (32.0-36.0); RED BLOOD COUNT 4.47 mill/uL (4.20-5.60); RED CELL DISTRI WIDTH 12.6 % (11.5-15.5)
[2022-04-26 07:08] LABS: ANION GAP 5 (6-22 (CALC)); BUN 7 mg/dL (8-23); BUN/CREATININE RATIO 11 (12-20 (CALC)); CARBON DIOXIDE 31 mmol/l (22-30); CHLORIDE 100 mmol/l (95-108); CREATININE 0.6 mg/dL (0.5-1.0); GFR FOR AFR.AMER. > 60 ML/MIN (>=60 (CALC)); GFR OTHER RACES > 60 ML/MIN (>=60 (CALC)); MAGNESIUM 1.7 mg/dL (1.6-2.3); SODIUM 132 mmol/l (137-146)
[2022-04-27] VITALS (8 sets, daily range): BP systolic 129–179; BP diastolic 64–90
[2022-04-28] VITALS (9 sets, daily range): BP systolic 128–177; BP diastolic 75–91
[2022-04-28 05:35] LABS: HEMATOCRIT 41.7 % (37.0-47.0); HEMOGLOBIN 14.1 g/dl (12.0-16.0); MEAN CELL VOLUME 90.3 fL CALC (80.0-100.0); MEAN CORPUSCULAR HGB 30.5 pG CALC (26.0-32.0); MEAN CORPUSCULAR HGB CONC 33.8 g/dL CAL (32.0-36.0); RED BLOOD COUNT 4.62 mill/uL (4.20-5.60); RED CELL DISTRI WIDTH 12.3 % (11.5-15.5)
[2022-04-28 05:53] LABS: ANION GAP 9 (6-22 (CALC)); BUN 3 mg/dL (8-23); BUN/CREATININE RATIO 6 (12-20 (CALC)); CARBON DIOXIDE 30 mmol/l (22-30); CHLORIDE 93 mmol/l (95-108); CREATININE 0.5 mg/dL (0.5-1.0); GFR FOR AFR.AMER. > 60 ML/MIN (>=60 (CALC)); GFR OTHER RACES > 60 ML/MIN (>=60 (CALC)); MAGNESIUM 1.2 mg/dL (1.6-2.3); POTASSIUM 2.8 mmol/l (3.5-5.1); SODIUM 129 mmol/l (137-146)
[2022-04-29] VITALS (7 sets, daily range): BP systolic 127–166; BP diastolic 63–84
[2022-04-29 05:05] LABS: HEMATOCRIT 42.2 % (37.0-47.0); HEMOGLOBIN 14.2 g/dl (12.0-16.0); MEAN CELL VOLUME 89.6 fL CALC (80.0-100.0); MEAN CORPUSCULAR HGB 30.1 pG CALC (26.0-32.0); MEAN CORPUSCULAR HGB CONC 33.6 g/dL CAL (32.0-36.0); RED BLOOD COUNT 4.71 mill/uL (4.20-5.60); RED CELL DISTRI WIDTH 12.5 % (11.5-15.5)
[2022-04-29 05:17] LABS: ANION GAP 8 (6-22 (CALC)); BUN 4 mg/dL (8-23); BUN/CREATININE RATIO 6 (12-20 (CALC)); CARBON DIOXIDE 29 mmol/l (22-30); CHLORIDE 92 mmol/l (95-108); CREATININE 0.6 mg/dL (0.5-1.0); GFR FOR AFR.AMER. > 60 ML/MIN (>=60 (CALC)); GFR OTHER RACES > 60 ML/MIN (>=60 (CALC)); MAGNESIUM 1.5 mg/dL (1.6-2.3); POTASSIUM 2.7 mmol/l (3.5-5.1); SODIUM 126 mmol/l (137-146)
[2022-04-30] VITALS (7 sets, daily range): BP systolic 111–155; BP diastolic 59–80
[2022-04-30 05:43] LABS: ANION GAP 7 (6-22 (CALC)); BUN 6 mg/dL (8-23); BUN/CREATININE RATIO 11 (12-20 (CALC)); CARBON DIOXIDE 31 mmol/l (22-30); CHLORIDE 95 mmol/l (95-108); CREATININE 0.6 mg/dL (0.5-1.0); GFR FOR AFR.AMER. > 60 ML/MIN (>=60 (CALC)); GFR OTHER RACES > 60 ML/MIN (>=60 (CALC)); MAGNESIUM 1.6 mg/dL (1.6-2.3); POTASSIUM 2.8 mmol/l (3.5-5.1); SODIUM 130 mmol/l (137-146)
[2022-05-01 03:52] VITALS: BP 154/84
[2022-05-01 05:36] LABS: HEMATOCRIT 40.3 % (37.0-47.0); HEMOGLOBIN 13.8 g/dl (12.0-16.0); IMMATURE GRANULOCYTES 0.8 % (0.0-5.0); MEAN CELL VOLUME 89.2 fL CALC (80.0-100.0); MEAN CORPUSCULAR HGB 30.5 pG CALC (26.0-32.0); MEAN CORPUSCULAR HGB CONC 34.2 g/dL CAL (32.0-36.0); NEUT# 2.36 thou/uL (2.00-7.15); RED BLOOD COUNT 4.52 mill/uL (4.20-5.60)
[2022-05-01 06:13] LABS: ANION GAP 8 (6-22 (CALC)); BUN 9 mg/dL (8-23); BUN/CREATININE RATIO 14 (12-20 (CALC)); CARBON DIOXIDE 28 mmol/l (22-30); CHLORIDE 99 mmol/l (95-108); CREATININE 0.6 mg/dL (0.5-1.0); GFR FOR AFR.AMER. > 60 ML/MIN (>=60 (CALC)); GFR OTHER RACES > 60 ML/MIN (>=60 (CALC)); POTASSIUM 3.2 mmol/l (3.5-5.1); SODIUM 133 mmol/l (137-146)
[2022-05-01 06:14] LABS: ALBUMIN 2.6 g/dL (3.2-5.0); ALKALINE PHOSPHATASE 51 u/l (38-126); BILIRUBIN, TOTAL 0.2 mg/dL (0.0-1.4); SGOT/AST 82 u/l (9-36); TOTAL PROTEIN 4.9 g/dL (6.3-8.2)
[2022-05-01 06:30] VITALS: BP 130/71
[2022-05-01 10:17] VITALS: BP 128/76
[2022-05-01 14:26] VITALS: BP 140/69
[2022-05-01 19:17] VITALS: BP 146/78
[2022-05-02] VITALS (7 sets, daily range): BP systolic 116–160; BP diastolic 75–81
[2022-05-02 06:15] LABS: ANION GAP 8 (6-22 (CALC)); BUN 10 mg/dL (8-23); BUN/CREATININE RATIO 17 (12-20 (CALC)); CARBON DIOXIDE 30 mmol/l (22-30); CHLORIDE 100 mmol/l (95-108); CREATININE 0.6 mg/dL (0.5-1.0); GFR FOR AFR.AMER. > 60 ML/MIN (>=60 (CALC)); GFR OTHER RACES > 60 ML/MIN (>=60 (CALC)); MAGNESIUM 1.2 mg/dL (1.6-2.3); POTASSIUM 3.1 mmol/l (3.5-5.1); SODIUM 135 mmol/l (137-146)
[2022-05-03] VITALS (8 sets, daily range): BP systolic 127–163; BP diastolic 66–92
[2022-05-03 05:25] LABS: HEMATOCRIT 42.7 % (37.0-47.0); MEAN CELL VOLUME 91.8 fL CALC (80.0-100.0); MEAN CORPUSCULAR HGB 30.1 pG CALC (26.0-32.0); MEAN CORPUSCULAR HGB CONC 32.8 g/dL CAL (32.0-36.0); RED BLOOD COUNT 4.65 mill/uL (4.20-5.60); RED CELL DISTRI WIDTH 13.2 % (11.5-15.5)
[2022-05-03 05:53] LABS: ALBUMIN 2.8 g/dL (3.2-5.0); ALKALINE PHOSPHATASE 53 u/l (38-126); ANION GAP 7 (6-22 (CALC)); BILIRUBIN, TOTAL 0.4 mg/dL (0.0-1.4); BUN 7 mg/dL (8-23); BUN/CREATININE RATIO 13 (12-20 (CALC)); CARBON DIOXIDE 30 mmol/l (22-30); CHLORIDE 99 mmol/l (95-108); CREATININE 0.5 mg/dL (0.5-1.0); GFR FOR AFR.AMER. > 60 ML/MIN (>=60 (CALC)); GFR OTHER RACES > 60 ML/MIN (>=60 (CALC)); MAGNESIUM 1.6 mg/dL (1.6-2.3); POTASSIUM 3.2 mmol/l (3.5-5.1); SGOT/AST 56 u/l (9-36); SODIUM 132 mmol/l (137-146)
[2022-05-04] VITALS (7 sets, daily range): BP systolic 131–166; BP diastolic 74–97
[2022-05-04 06:17] LABS: HEMATOCRIT 41.9 % (37.0-47.0); HEMOGLOBIN 14.1 g/dl (12.0-16.0); MEAN CELL VOLUME 91.3 fL CALC (80.0-100.0); MEAN CORPUSCULAR HGB 30.7 pG CALC (26.0-32.0); MEAN CORPUSCULAR HGB CONC 33.7 g/dL CAL (32.0-36.0); RED BLOOD COUNT 4.59 mill/uL (4.20-5.60)
[2022-05-04 06:40] LABS: ALBUMIN 2.7 g/dL (3.2-5.0); ALKALINE PHOSPHATASE 59 u/l (38-126); ANION GAP 7 (6-22 (CALC)); BILIRUBIN, TOTAL 0.4 mg/dL (0.0-1.4); BUN 8 mg/dL (8-23); BUN/CREATININE RATIO 17 (12-20 (CALC)); CARBON DIOXIDE 30 mmol/l (22-30); CHLORIDE 99 mmol/l (95-108); CREATININE 0.5 mg/dL (0.5-1.0); GFR FOR AFR.AMER. > 60 ML/MIN (>=60 (CALC)); GFR OTHER RACES > 60 ML/MIN (>=60 (CALC)); MAGNESIUM 1.3 mg/dL (1.6-2.3); POTASSIUM 3.4 mmol/l (3.5-5.1); SGOT/AST 74 u/l (9-36); SODIUM 133 mmol/l (137-146); TOTAL PROTEIN 4.9 g/dL (6.3-8.2)
[2022-05-04 21:12] LABS: ANION GAP 7 (6-22 (CALC)); BUN 12 mg/dL (8-23); BUN/CREATININE RATIO 23 (12-20 (CALC)); CARBON DIOXIDE 28 mmol/l (22-30); CHLORIDE 96 mmol/l (95-108); CREATININE 0.5 mg/dL (0.5-1.0); GFR FOR AFR.AMER. > 60 ML/MIN (>=60 (CALC)); GFR OTHER RACES > 60 ML/MIN (>=60 (CALC)); POTASSIUM 3.7 mmol/l (3.5-5.1); SODIUM 128 mmol/l (137-146)
[2022-05-04 21:20] LABS: MAGNESIUM 2.3 mg/dL (1.6-2.3)
[2022-05-05 00:01] VITALS: BP 139/82
[2022-05-05 03:50] VITALS: BP 156/89
[2022-05-05 04:00] VITALS: BP 156/89
[2022-05-05 05:43] LABS: HEMOGLOBIN 13.8 g/dl (12.0-16.0); IMMATURE GRANULOCYTES 0.7 % (0.0-5.0); MEAN CELL VOLUME 91.3 fL CALC (80.0-100.0); MEAN CORPUSCULAR HGB CONC 32.9 g/dL CAL (32.0-36.0); NEUT# 2.47 thou/uL (2.00-7.15); RED BLOOD COUNT 4.6 mill/uL (4.20-5.60)
[2022-05-05 06:12] VITALS: BP 153/84
[2022-05-05 06:20] LABS: ALBUMIN 2.8 g/dL (3.2-5.0); ALKALINE PHOSPHATASE 61 u/l (38-126); ANION GAP 4 (6-22 (CALC)); BILIRUBIN, TOTAL 0.4 mg/dL (0.0-1.4); BUN 11 mg/dL (8-23); BUN/CREATININE RATIO 19 (12-20 (CALC)); C-REACTIVE PROTEIN < 0.5 mg/dL (0-0.9); CARBON DIOXIDE 33 mmol/l (22-30); CHLORIDE 98 mmol/l (95-108); CREATININE 0.6 mg/dL (0.5-1.0); GFR FOR AFR.AMER. > 60 ML/MIN (>=60 (CALC)); GFR OTHER RACES > 60 ML/MIN (>=60 (CALC)); POTASSIUM 3.1 mmol/l (3.5-5.1); SGOT/AST 60 u/l (9-36); SODIUM 132 mmol/l (137-146); TOTAL PROTEIN 5.2 g/dL (6.3-8.2)
[2022-05-05 11:38] VITALS: BP 142/78
[2022-05-05] MEDS ORDERED: DECADRON2 MG PO (12:11)
== END 2022-05-05 14:22 | disposition home health service (06) | DRG 385 ==
LOC: ED 11:06 → ED-I 13:00 → ED 14:04 → MS2 14:05 → ED 15:41 → ED-I 15:41 → MS2 04-27 11:56
PROVIDERS: Family Medicine; Internal Medicine; ADMIT Hospitalist; ATTEND Internal Medicine
PROC: 0DB48ZX Excision of Esophagogastric Junction, Via Natural or Artificial Opening Endoscopic, Diagnostic (ICD-10-PCS; principal; 2022-04-28)
PROC: 0DB68ZX Excision of Stomach, Via Natural or Artificial Opening Endoscopic, Diagnostic (ICD-10-PCS; 2022-04-28)
DX: K50.10 Crohn's disease of large intestine without complications (principal); U07.1 COVID-19; E87.1 Hypo-osmolality and hyponatremia; N39.0 Urinary tract infection, site not specified; K56.41 Fecal impaction; K29.70 Gastritis, unspecified, without bleeding; E86.0 Dehydration; R19.7 Diarrhea, unspecified; R53.1 Weakness; R53.83 Other fatigue; E87.6 Hypokalemia; E83.42 Hypomagnesemia; I10 Essential (primary) hypertension; I48.91 Unspecified atrial fibrillation; E78.5 Hyperlipidemia, unspecified; F41.9 Anxiety disorder, unspecified; F32.A Depression, unspecified; T50.2X5A Adverse effect of carbonic-anhydrase inhibitors, benzothiadiazides and other diuretics, initial encounter; B95.61 Methicillin susceptible Staphylococcus aureus infection as the cause of diseases classified elsewhere; Z79.01 Long term (current) use of anticoagulants; Z91.041 Radiographic dye allergy status; Z98.890 Other specified postprocedural states
CPT/HCPCS: G0378; J1650; J3475; Q9967

== ENCOUNTER 2023-03-28 23:19 | Observation (INO) | payer MEDICARE ==
[~2023-03-28] VITALS: Ht 147.3 cm; Wt 40.6 kg
[~2023-03-28 23:19] MED LIST changes: +ATENOLOL50 MG PO; +DECADRON2 MG PO; +LEXAPRO5 MG PO; +PROTONIX40 M2 PO
[2023-03-28 23:26] VITALS: BP 212/109
--- NOTE | 2023-03-28 23:26 | NUR ---
PT ARRIVED VIA EMS. IV RIGHT AC. C/O ABD CRAMPING/DIARRHEA/NAUSEA. TRIAGED AT BEDSIDE.
[2023-03-29] VITALS (14 sets, daily range): BP systolic 142–181; BP diastolic 71–128
[2023-03-29 00:05] LABS: BASO% 0.8 % (0-3); HEMATOCRIT 44.2 % (37.0-47.0); HEMOGLOBIN 14.2 g/dl (12.0-16.0); IMMATURE GRANULOCYTES 0.2 % (0.0-5.0); MEAN CELL VOLUME 91.3 fL CALC (80.0-100.0); MEAN CORPUSCULAR HGB 29.3 pG CALC (26.0-32.0); MEAN CORPUSCULAR HGB CONC 32.1 g/dL CAL (32.0-36.0); MONO% 8.4 % (2-13); NEUT# 6.26 thou/uL (2.00-7.15); NEUT% 69.6 % (42-76); RED BLOOD COUNT 4.84 mill/uL (4.20-5.60); RED CELL DISTRI WIDTH 12.5 % (11.5-15.5)
[2023-03-29 00:08] LABS: ALBUMIN 4.4 g/dL (3.2-5.0); ALKALINE PHOSPHATASE 118 u/l (38-126); ANION GAP 14 (6-22 (CALC)); BUN 16 mg/dL (8-23); BUN/CREATININE RATIO 19 (12-20 (CALC)); CARBON DIOXIDE 30 mmol/l (22-30); CHLORIDE 95 mmol/l (95-108); CREATININE 0.8 mg/dL (0.5-1.0); GFR FOR AFR.AMER. > 60 ML/MIN (>=60 (CALC)); GFR OTHER RACES > 60 ML/MIN (>=60 (CALC)); SGOT/AST 66 u/l (9-36); SODIUM 134 mmol/l (137-146); TOTAL PROTEIN 7.6 g/dL (6.3-8.2)
[2023-03-29 00:14] LABS: POTASSIUM 4.9 mmol/l (3.5-5.1)
[2023-03-29 01:40] LABS: AMYLASE 78 u/l (30-110); LIPASE 32 u/l (23-300)
--- NOTE | 2023-03-29 02:14 | NUR ---
DAUGHTER CALLED AND STATES THAT PT VOMITED BLOOD. 3 CC'S OF REDDISH EMESIS IN BAG. NOTIFIED/SENT TO LAB FOR OCCULT BLOOD.
--- NOTE | 2023-03-29 04:38 | NUR ---
PT INCONT OF SMALL AMT OF LIQUID STOOL. SMALL AMT OF WATERY BROWN LIQUID IN COMMODE. DRCharu AWARE. SSE ADMINISTERED.
--- NOTE | 2023-03-29 04:57 | NUR ---
EFFECTIVE FOR SMALL AMT OF WATERY BROWN LIQUID. IN TO DISCUSS DISCHARGE. PT AND DAUGHTER NOT HAPPY. ADVISED THAT PT IS CONSTIPATED. ALL RESULTS WITHIN LIMITS.
[2023-03-29] MEDS ORDERED: POT CHLORIDE10 ME5 PO (06:12)
--- NOTE | 2023-03-29 06:30 | NUR ---
ATTEMPTED TO CALL REPORT. NURSE UNABLE TO COME TO PHONE
--- NOTE | 2023-03-29 07:28 | NUR ---
REPORT HANDED IN FROM ZULLY
--- NOTE | 2023-03-29 07:37 | NUR ---
REPORT TO KATHERINE/MED SURG.
--- NOTE | 2023-03-29 08:40 | NUR ---
PT ARRIVED FROM ER TO RM 280 VIA W/C, REPORT RECEIVED FROM NABIL. PT IS ALERT AND ORIENTED X 3, CONFUSION AT TIMES. PT C/O NAUSEA AT TIMES AND LOWER ABD PAIN AT 4/10 ON PAIN SCALE. TELE ON WITH ALL LEADS ATTACHED. IV # 20 RAC, CLEAN AND INTACT, WITH NO REDNESS AT SITE. LUNGS CLEAR AND SOFT WITH ACITVE BS. PUREWICK PLACED AND BEDISDE AVAILABLE FOR TOILETING NEEDS. PT SKIN CLEAN AND INTACT, SOME BRUISING NOTED TO BILAT ARMS. PT OREINTED TO AND CALL LIGHT. PT HAS CALL LIGHT AND ALL SAFETY MEASURES IN PLACE AT THIS TIME.
--- NOTE | 2023-03-29 08:55 | NUR ---
pt transported to 280 med/surg via wheelchair. nno complications
--- NOTE | 2023-03-29 12:00 | NUR ---
PT IN BED WITH HOB UP, ALERT AND OREINTED TO SELF AND PLACE. PT CONTINUES TO C/O ABD PAIN AT 2/10 ON PAIN SCALE; PT PLACED ON BED PALMER FOR POSSIBLE BM. PT HAS NO CHANGE IN STATUS AT THIS TIME. CALL LIGHT WITHIN REACH AND ALL SAFETY MEASURES IN PLACE AT THIS TIME.
--- NOTE | 2023-03-29 16:00 | NUR ---
PT IN BED WITH HOB UP, DAUGHTER AT BEDSIDE. PT HAS IS ANXIOUS, PRN MEDICATION FOR ANXIETY GIVEN. PT CONTINUE TO C/O MILD, LOWER ABD PAIN AT 2/10 ON PAIN SCALE. PT HAS CALL LIGHT WITHIN REACH ALL SAFETY MEASURES IN PLACE AT THIS TIME.
[2023-03-29 18:40] LABS: URINE BILIRUBIN - DIPSTICK NEGATIVE (NEGATIVE); URINE BLOOD DIPSTICK TRACE-INTACT (NEGATIVE); URINE COLOR YELLOW; URINE GLUCOSE - DIPSTICK NEGATIVE (NEGATIVE); URINE KETONE TRACE mg/dL (NEGATIVE); URINE LEUK ESTERASE TRACE (NEGATIVE); URINE PH 7.5 (4.5-8.0); URINE PROTEIN - DIPSTICK TRACE mg/dL (NEG-TRACE); URINE SPECIFIC GRAVITY 1.015; URINE UROBILINOGEN - DIPSTICK 0.2 E.U./dL (0.2)
[2023-03-29 18:41] LABS: URINE NITRITE - DIPSTICK NEGATIVE (Negative)
--- NOTE | 2023-03-29 20:01 | NUR ---
PT IN BED WITH HOB UP, ALERT AND OREINTED X 3. PT HAS NO C/O PAIN AT THIS TIME. PT HAS BEDSIDE COMMODE FOR TOILETING. TELE ON WITH ALL LEADS ATTACHED. IV SITE CLEAN AND INTACT. PT HAS CALL LIGHT WITHIN REACH AND ALL SAFETY MEASURES IN PLACE AT THIS TIME.
--- NOTE | 2023-03-29 20:15 | NUR ---
REPORT RECEIVED FROM PT PRIMARY NURSE Tyler ORDONEZ RN, AT THIS TIME CARE OF PT ASSUMED.
--- NOTE | 2023-03-29 21:00 | NUR ---
PT ASSISTED UP TO BSC, VOIDS 300ML CLEAR PALE YELLOW URINE. ASSISTED BACK TO BED. GLUTEAL CLEFT NOTED TO BE IRRITATED WITH INTACT RED AND BLANCHABLE SKIN. BARRIER CREAM APPLIED BY PAINT MAKER.
--- NOTE | 2023-03-29 23:58 | NUR ---
REPORT ENDORSED TO Nohemi PAYTON RN, CARE OF PT SURRENDERED AT THIS TIME.
[2023-03-30 03:40] VITALS: BP 131/69
[2023-03-30 04:51] VITALS: BP 131/69
[2023-03-30 06:09] LABS: BASO% 0.9 % (0-3); EOS% 1.7 % (0-8); HEMOGLOBIN 14.6 g/dl (12.0-16.0); IMMATURE GRANULOCYTES 0.2 % (0.0-5.0); LYMPH% 25.4 % (15-41); MEAN CELL VOLUME 91.8 fL CALC (80.0-100.0); MEAN CORPUSCULAR HGB 29.1 pG CALC (26.0-32.0); MEAN CORPUSCULAR HGB CONC 31.7 g/dL CAL (32.0-36.0); MONO% 9.8 % (2-13); NEUT# 6.1 thou/uL (2.00-7.15); RED BLOOD COUNT 5.01 mill/uL (4.20-5.60); RED CELL DISTRI WIDTH 12.5 % (11.5-15.5)
[2023-03-30 06:28] LABS: ALBUMIN 3.9 g/dL (3.2-5.0); ALKALINE PHOSPHATASE 106 u/l (38-126); ANION GAP 10 (6-22 (CALC)); BILIRUBIN, TOTAL 0.7 mg/dL (0.02-1.3); BUN 11 mg/dL (8-23); BUN/CREATININE RATIO 13 (12-20 (CALC)); CARBON DIOXIDE 34 mmol/l (22-30); CHLORIDE 95 mmol/l (95-108); CREATININE 0.8 mg/dL (0.5-1.0); GFR FOR AFR.AMER. > 60 ML/MIN (>=60 (CALC)); GFR OTHER RACES > 60 ML/MIN (>=60 (CALC)); MAGNESIUM 2.1 mg/dL (1.6-2.3); POTASSIUM 3.5 mmol/l (3.5-5.1); SGOT/AST 44 u/l (9-36); SODIUM 135 mmol/l (137-146); TOTAL PROTEIN 6.7 g/dL (6.3-8.2)
--- NOTE | 2023-03-30 07:58 | NUR ---
PERFROMED BEDSIDE REPORT WITH TABLE AND DESK FINISHER NURSE. PT IS A/OX3, REQUESTED TO USE RESTROOM. ASSISTED PT TO BATHROOM STANDY BY ASSIST. GAIT WAS STEADY BUT SHUFFLED. PT ABLE TO URINATE NO PROBLEM. ASSISTED BACK INTO BED. EDUCATED PT ON PLAN OF CARE FOR TODAY. CALL LIGHT WITHIN REACH AND SAFETY PRECAUTIONS IN PLACE.
--- NOTE | 2023-03-30 12:19 | NUR ---
PT IS SITTING UP IN CHAIR EATING LUNCH AT THIS TIME. DAUGHTER IN RM WITH PT. CALL LIGHT WITHIN REACH AND SAFETY PRECAUTIONS IN PLACE.
[2023-03-30 13:16] VITALS: BP 99/60
--- NOTE | 2023-03-30 15:22 | NUR ---
IV site discontinued, cath intact. No edema , no redness, voices no discomfort. Discharge instructions given. Patient verbalizes understanding of same. Discharged in condition via Wheelchair to Home with family. All belongings sent with pt.
== END 2023-03-30 15:25 | disposition home or self-care (01) ==
LOC: ED 23:19 → ED-I 03-29 05:00 → ED 03-29 05:15 → MS2 03-29 05:16
PROVIDERS: Emergency Medicine; Nurse Practitioner Family; ADMIT Internal Medicine; ATTEND Internal Medicine
DX: I16.0 Hypertensive urgency (principal); I11.0 Hypertensive heart disease with heart failure; I50.9 Heart failure, unspecified; I48.91 Unspecified atrial fibrillation; K44.9 Diaphragmatic hernia without obstruction or gangrene; R11.0 Nausea; K59.09 Other constipation; E78.5 Hyperlipidemia, unspecified; F41.9 Anxiety disorder, unspecified; F32.A Depression, unspecified; F03.90 Unspecified dementia, unspecified severity, without behavioral disturbance, psychotic disturbance, mood disturbance, and anxiety; Z20.822 Contact with and (suspected) exposure to COVID-19
CPT/HCPCS: S0164

== ENCOUNTER 2023-06-21 10:25 | Emergency (ER) | payer MEDICARE ==
[~2023-06-21] VITALS: Ht 147.3 cm; Wt 44.0 kg
[~2023-06-21 10:25] MED LIST changes: +POT CHLORIDE10 ME5 PO
[2023-06-21 10:46] VITALS: BP 167/82
[2023-06-21 11:00] VITALS: BP 150/81
[2023-06-21 11:15] VITALS: BP 158/92
[2023-06-21 11:31] VITALS: BP 160/82
[2023-06-21 11:45] VITALS: BP 144/78
[2023-06-21] MEDS ORDERED: FLEET ENEMA RE (11:48)
[2023-06-21] MEDS ORDERED: CITRATE OF MEGNESIA PO (11:48)
[2023-06-21] MEDS ORDERED: MIRALAX17 GM PO (11:48)
[2023-06-21 12:01] VITALS: BP 152/104
== END 2023-06-21 11:51 | disposition home or self-care (01) ==
LOC: ED 10:25
DX: K59.00 Constipation, unspecified (principal); I11.0 Hypertensive heart disease with heart failure; I50.9 Heart failure, unspecified

== ENCOUNTER 2023-10-21 13:17 | Emergency (ER) | payer MEDICARE ==
[2023-10-21] VITALS (19 sets, daily range): BP systolic 97–177; BP diastolic 69–116
[~2023-10-21] VITALS: Ht 147.3 cm; Wt 54.0 kg
[~2023-10-21 13:17] MED LIST changes: +CITRATE OF MEGNESIA PO; +FLEET ENEMA RE; +MIRALAX17 GM PO
[2023-10-21 14:07] LABS: BASO% 0.5 % (0-3); EOS% 0.1 % (0-8); HEMATOCRIT 45.1 % (37.0-47.0); HEMOGLOBIN 14.4 g/dl (12.0-16.0); IMMATURE GRANULOCYTES 0.1 % (0.0-5.0); LYMPH% 18.5 % (15-41); MEAN CELL VOLUME 93.2 fL CALC (80.0-100.0); MEAN CORPUSCULAR HGB 29.8 pG CALC (26.0-32.0); MEAN CORPUSCULAR HGB CONC 31.9 g/dL CAL (32.0-36.0); MONO% 5.1 % (2-13); NEUT# 5.88 thou/uL (2.00-7.15); NEUT% 75.7 % (42-76); RED BLOOD COUNT 4.84 mill/uL (4.20-5.60); RED CELL DISTRI WIDTH 12.9 % (11.5-15.5)
[2023-10-21 14:36] LABS: ALBUMIN 4.3 g/dL (3.2-5.0); ALKALINE PHOSPHATASE 99 u/l (38-126); ANION GAP 12 (6-22 (CALC)); BUN 19 mg/dL (8-23); BUN/CREATININE RATIO 13 (12-20 (CALC)); CARBON DIOXIDE 31 mmol/l (22-30); CHLORIDE 100 mmol/l (95-108); CREATININE 1.4 mg/dL (0.5-1.0); GFR FOR AFR.AMER. 44 ML/MIN (>=60 (CALC)); GFR OTHER RACES 36 ML/MIN (>=60 (CALC)); LIPASE 58 u/l (23-300); POTASSIUM 4.6 mmol/l (3.5-5.1); SGOT/AST 48 u/l (9-36); SODIUM 138 mmol/l (137-146)
[2023-10-21 14:51] LABS: BILIRUBIN, TOTAL 0.9 mg/dL (0.02-1.3)
[2023-10-21 15:41] LABS: URINE BLOOD DIPSTICK Negative (NEGATIVE); URINE GLUCOSE - DIPSTICK Negative (NEGATIVE); URINE KETONE Negative (NEGATIVE); URINE LEUK ESTERASE Negative (NEGATIVE); URINE NITRITE - DIPSTICK Negative (Negative); URINE PROTEIN - DIPSTICK 30 mg/dL (NEG-TRACE)
[2023-10-21 15:43] LABS: URINE COLOR Yellow
[2023-10-21 15:58] LABS: URINE RBC 0-2 RBC/hpf (0-5); URINE SQUAMOUS EPITHELIAL CELL RARE EPI/hpf (0-FEW); URINE WBC 0-2 WBC/hpf (0-5)
[2023-10-21] MEDS ORDERED: XANAX0.5 MG PO (16:49)
== END 2023-10-21 17:55 | disposition home or self-care (01) ==
LOC: ED 13:17
PROVIDERS: Emergency Medicine
DX: R10.30 Lower abdominal pain, unspecified (principal); I11.0 Hypertensive heart disease with heart failure; I50.9 Heart failure, unspecified

== ENCOUNTER 2023-10-30 08:12 | Observation (INO) | payer MEDICARE ==
[~2023-10-30] VITALS: Ht 147.3 cm; Wt 37.0 kg
[2023-10-30] VITALS (29 sets, daily range): BP systolic 135–199; BP diastolic 73–110
[2023-10-30 09:03] LABS: BASO% 0.4 % (0-3); EOS% 0.5 % (0-8); HEMATOCRIT 43.7 % (37.0-47.0); HEMOGLOBIN 13.8 g/dl (12.0-16.0); IMMATURE GRANULOCYTES 0.3 % (0.0-5.0); LYMPH% 12.9 % (15-41); MEAN CELL VOLUME 93.2 fL CALC (80.0-100.0); MEAN CORPUSCULAR HGB 29.4 pG CALC (26.0-32.0); MEAN CORPUSCULAR HGB CONC 31.6 g/dL CAL (32.0-36.0); MONO% 7.2 % (2-13); NEUT# 8.92 thou/uL (2.00-7.15); NEUT% 78.7 % (42-76); RED BLOOD COUNT 4.69 mill/uL (4.20-5.60)
[2023-10-30 09:38] LABS: ALBUMIN 3.6 g/dL (3.2-5.0); ALKALINE PHOSPHATASE 94 u/l (38-126); ANION GAP 6 (6-22 (CALC)); BILIRUBIN, TOTAL 0.6 mg/dL (0.02-1.3); BUN 13 mg/dL (8-23); BUN/CREATININE RATIO 14 (12-20 (CALC)); CARBON DIOXIDE 36 mmol/l (22-30); CHLORIDE 98 mmol/l (95-108); CREATININE 0.9 mg/dL (0.5-1.0); GFR FOR AFR.AMER. > 60 ML/MIN (>=60 (CALC)); GFR OTHER RACES 60 ML/MIN (>=60 (CALC)); LIPASE 41 u/l (23-300); SGOT/AST 42 u/l (9-36); SODIUM 136 mmol/l (137-146); TOTAL PROTEIN 6.1 g/dL (6.3-8.2)
[2023-10-30 09:43] LABS: POTASSIUM 3.6 mmol/l (3.5-5.1)
[2023-10-30 11:33] LABS: URINE BILIRUBIN - DIPSTICK Negative (NEGATIVE); URINE BLOOD DIPSTICK Large (NEGATIVE); URINE GLUCOSE - DIPSTICK Negative (NEGATIVE); URINE KETONE Negative (NEGATIVE); URINE PH 7.5 (4.5-8.0); URINE PROTEIN - DIPSTICK 100 mg/dL (NEG-TRACE); URINE UROBILINOGEN - DIPSTICK 0.2 E.U./dL (0.2)
[2023-10-30 11:34] LABS: URINE COLOR Brown; URINE LEUK ESTERASE Large (NEGATIVE); URINE NITRITE - DIPSTICK Positive (Negative); URINE WBC 20-50 WBC/hpf (0-5)
[2023-10-30 11:35] LABS: URINE BACTERIA MANY hpf
[2023-10-31 00:17] VITALS: BP 137/79
[2023-10-31 04:47] VITALS: BP 145/76
[2023-10-31 05:50] LABS: BASO% 0.2 % (0-3); EOS% 0.1 % (0-8); HEMATOCRIT 42.1 % (37.0-47.0); HEMOGLOBIN 13.7 g/dl (12.0-16.0); IMMATURE GRANULOCYTES 0.2 % (0.0-5.0); LYMPH% 12.2 % (15-41); MEAN CELL VOLUME 91.9 fL CALC (80.0-100.0); MEAN CORPUSCULAR HGB 29.9 pG CALC (26.0-32.0); MEAN CORPUSCULAR HGB CONC 32.5 g/dL CAL (32.0-36.0); MONO% 6.9 % (2-13); NEUT# 11.03 thou/uL (2.00-7.15); NEUT% 80.4 % (42-76); RED BLOOD COUNT 4.58 mill/uL (4.20-5.60); RED CELL DISTRI WIDTH 13.4 % (11.5-15.5)
[2023-10-31 06:27] LABS: ALBUMIN 3.1 g/dL (3.2-5.0); ALKALINE PHOSPHATASE 82 u/l (38-126); ANION GAP 7 (6-22 (CALC)); BILIRUBIN, TOTAL 0.4 mg/dL (0.02-1.3); BUN 13 mg/dL (8-23); BUN/CREATININE RATIO 14 (12-20 (CALC)); CARBON DIOXIDE 31 mmol/l (22-30); CHLORIDE 103 mmol/l (95-108); CHOLESTEROL HDL RATIO 2.6 (<4.4 (CALC)); CREATININE 0.9 mg/dL (0.5-1.0); GFR FOR AFR.AMER. > 60 ML/MIN (>=60 (CALC)); GFR OTHER RACES 60 ML/MIN (>=60 (CALC)); HDL CHOLESTEROL 43 mg/dL (39.0-59.0); SGOT/AST 30 u/l (9-36); SODIUM 138 mmol/l (137-146); TOTAL PROTEIN 5.4 g/dL (6.3-8.2); TOTAL TRIGLYCERIDES 63 mg/dl (0-149); VLDL CHOLESTROL 13 mg/dl (0-48 (CALC))
[2023-10-31 06:33] LABS: CALCULATED LDLCHOLESTEROL 56 mg/dL (62-129 (CALC)); TOTAL CHOLESTEROL 112 mg/dl (0-199)
[2023-10-31 06:47] VITALS: BP 161/89
[2023-10-31 10:56] VITALS: BP 134/71
[2023-10-31 15:28] VITALS: BP 154/79
[2023-11-01] VITALS (7 sets, daily range): BP systolic 132–170; BP diastolic 67–93
[2023-11-01 06:20] LABS: BASO% 0.6 % (0-3); EOS% 0.9 % (0-8); HEMATOCRIT 40.6 % (37.0-47.0); HEMOGLOBIN 13.3 g/dl (12.0-16.0); IMMATURE GRANULOCYTES 0.4 % (0.0-5.0); LYMPH% 18.9 % (15-41); MEAN CELL VOLUME 93.5 fL CALC (80.0-100.0); MEAN CORPUSCULAR HGB 30.6 pG CALC (26.0-32.0); MEAN CORPUSCULAR HGB CONC 32.8 g/dL CAL (32.0-36.0); MONO% 8.7 % (2-13); NEUT# 5.56 thou/uL (2.00-7.15); NEUT% 70.5 % (42-76); RED BLOOD COUNT 4.34 mill/uL (4.20-5.60); RED CELL DISTRI WIDTH 13.3 % (11.5-15.5)
[2023-11-01 06:33] LABS: ALKALINE PHOSPHATASE 79 u/l (38-126); ANION GAP 4 (6-22 (CALC)); BILIRUBIN, TOTAL 0.5 mg/dL (0.02-1.3); BUN 5 mg/dL (8-23); BUN/CREATININE RATIO 8 (12-20 (CALC)); CARBON DIOXIDE 29 mmol/l (22-30); CHLORIDE 109 mmol/l (95-108); CREATININE 0.6 mg/dL (0.5-1.0); GFR FOR AFR.AMER. > 60 ML/MIN (>=60 (CALC)); GFR OTHER RACES > 60 ML/MIN (>=60 (CALC)); MAGNESIUM 1.8 mg/dL (1.6-2.3); SGOT/AST 31 u/l (9-36); SODIUM 139 mmol/l (137-146); TOTAL PROTEIN 5.3 g/dL (6.3-8.2)
[2023-11-01] MEDS ORDERED: OMNICEF300 MG PO (10:58)
[2023-11-01] MEDS ORDERED: GERI-KOT8.6 MG PO (10:59)
== END 2023-11-01 12:55 | disposition home or self-care (01) ==
LOC: ED 08:12 → ED-I 13:10 → ED 13:30 → MS2 13:31
PROVIDERS: Family Medicine; ADMIT Student in an Organized Health Care Education/Training Program; ATTEND Student in an Organized Health Care Education/Training Program
DX: K56.41 Fecal impaction (principal); N30.00 Acute cystitis without hematuria; B96.89 Other specified bacterial agents as the cause of diseases classified elsewhere; I11.0 Hypertensive heart disease with heart failure; I50.9 Heart failure, unspecified; E78.5 Hyperlipidemia, unspecified; F41.9 Anxiety disorder, unspecified; F32.A Depression, unspecified; Z88.0 Allergy status to penicillin
CPT/HCPCS: J1650; Q9967

== ENCOUNTER 2024-04-10 10:00 | Emergency (ER) | payer MEDICARE ==
[~2024-04-10] VITALS: Ht 147.3 cm; Wt 40.8 kg
[2024-04-10] VITALS (13 sets, daily range): BP systolic 126–191; BP diastolic 69–126
[~2024-04-10 10:00] MED LIST changes: +APRESOLINE10 MG PO; +ASPIRINCHW 81MG PO; +COLACE100 MG PO; +GERI-KOT8.6 MG PO; +LASIX 20 MG TAB20 MG PO; +OMNICEF300 MG PO; +REMERON15 MG PO; +ULTRAM50 MG PO; +XANAX0.25 MG PO
[2024-04-10] MEDS ORDERED: KETOROLAC TROMETHAMINE 15 MG/ML SDV IV STA (10:27)
[2024-04-10] MEDS ORDERED: SODIUM CHLORIDE 0.9% 500 ML IV ONE (10:35)
[2024-04-10 11:37] LABS: BASO% 0.5 % (0-3); EOS% 0.8 % (0-8); HEMATOCRIT 45.5 % (37.0-47.0); HEMOGLOBIN 13.9 g/dl (12.0-16.0); IMMATURE GRANULOCYTES 0.3 % (0.0-5.0); LYMPH% 21.6 % (15-41); MEAN CELL VOLUME 98.1 fL CALC (80.0-100.0); MEAN CORPUSCULAR HGB CONC 30.5 g/dL CAL (32.0-36.0); MONO% 6.8 % (2-13); NEUT# 6.03 thou/uL (2.00-7.15); RED BLOOD COUNT 4.64 mill/uL (4.20-5.60); RED CELL DISTRI WIDTH 13.4 % (11.5-15.5)
[2024-04-10 11:52] LABS: ALBUMIN 3.4 g/dL (3.2-5.0); CREATININE 0.9 mg/dL (0.5-1.0); POTASSIUM 3.9 mmol/l (3.5-5.1)
[2024-04-10 11:57] LABS: BILIRUBIN, TOTAL 0.4 mg/dL (0.02-1.3)
[2024-04-10] MEDS ORDERED: ASPIRIN 81 MG/TAB PO ONE (13:30)
[2024-04-10] MEDS ORDERED: traMADol HCL 50 MG/TAB PO ONE (13:50)
[2024-04-10] MEDS ORDERED: ENALAPRILAT 1.25 MG/ML 1ML IV ONE (13:50)
[2024-04-10 14:05] LABS: URINE BILIRUBIN - DIPSTICK Negative (NEGATIVE); URINE BLOOD DIPSTICK Negative (NEGATIVE); URINE GLUCOSE - DIPSTICK Negative (NEGATIVE); URINE KETONE Negative (NEGATIVE); URINE PH 7.5 (4.5-8.0); URINE PROTEIN - DIPSTICK Negative (NEG-TRACE); URINE SPECIFIC GRAVITY 1.015; URINE UROBILINOGEN - DIPSTICK 0.2 E.U./dL (0.2)
[2024-04-10 14:06] LABS: URINE COLOR Yellow; URINE LEUK ESTERASE Moderate (NEGATIVE); URINE NITRITE - DIPSTICK Positive (Negative)
[2024-04-10 14:10] LABS: URINE RBC 0-2 RBC/hpf (0-5)
[2024-04-10 14:11] LABS: URINE BACTERIA MANY hpf
[2024-04-10] MEDS ORDERED: NITROFURANTOIN 100 MG/CAP PO ONE (14:40)
[2024-04-10] MEDS ORDERED: NITROFURANTN100 M2 PO (14:41)
== END 2024-04-10 15:09 | disposition home or self-care (01) ==
LOC: ED 10:00
PROVIDERS: Emergency Medicine
DX: N39.0 Urinary tract infection, site not specified (principal); B96.1 Klebsiella pneumoniae [K. pneumoniae] as the cause of diseases classified elsewhere; I11.0 Hypertensive heart disease with heart failure; I50.9 Heart failure, unspecified; F03.90 Unspecified dementia, unspecified severity, without behavioral disturbance, psychotic disturbance, mood disturbance, and anxiety

== ENCOUNTER 2024-06-19 11:42 | Observation (INO) | payer MEDICARE ==
[2024-06-19] VITALS (16 sets, daily range): BP systolic 153–204; BP diastolic 74–101
[~2024-06-19] VITALS: Ht 147.3 cm; Wt 40.2 kg
[~2024-06-19 11:42] MED LIST changes: +NITROFURANTN100 M2 PO
[2024-06-19 12:07] LABS: BASO% 0.8 % (0-3); EOS% 0.8 % (0-8); HEMATOCRIT 40.2 % (37.0-47.0); HEMOGLOBIN 12.6 g/dl (12.0-16.0); IMMATURE GRANULOCYTES 0.2 % (0.0-5.0); MEAN CELL VOLUME 93.7 fL CALC (80.0-100.0); MEAN CORPUSCULAR HGB 29.4 pG CALC (26.0-32.0); MEAN CORPUSCULAR HGB CONC 31.3 g/dL CAL (32.0-36.0); NEUT# 3.83 thou/uL (2.00-7.15); NEUT% 64.2 % (42-76); RED BLOOD COUNT 4.29 mill/uL (4.20-5.60); RED CELL DISTRI WIDTH 12.2 % (11.5-15.5)
[2024-06-19 12:23] LABS: ALBUMIN 3.9 g/dL (3.2-5.0); BILIRUBIN, TOTAL 0.6 mg/dL (0.02-1.3); POTASSIUM 3.6 mmol/l (3.5-5.1); TOTAL PROTEIN 6.8 g/dL (6.3-8.2)
[2024-06-19] MEDS ORDERED: ONDANSETRON HCl 4 MG/2 ML SDV IV ONE (12:30)
[2024-06-19] MEDS ORDERED: SODIUM CHLORIDE 0.9% 1,000 ML IV ONE (12:30)
[2024-06-19 12:38] LABS: URINE BILIRUBIN - DIPSTICK Negative (NEGATIVE); URINE BLOOD DIPSTICK Trace-intact (NEGATIVE); URINE GLUCOSE - DIPSTICK Negative (NEGATIVE); URINE KETONE Negative (NEGATIVE); URINE LEUK ESTERASE Negative (NEGATIVE); URINE NITRITE - DIPSTICK Negative (Negative); URINE PH 6.5 (4.5-8.0); URINE PROTEIN - DIPSTICK Negative (NEG-TRACE); URINE UROBILINOGEN - DIPSTICK 0.2 E.U./dL (0.2)
[2024-06-19 12:40] LABS: URINE COLOR Yellow
[2024-06-19] MEDS ORDERED: LABETALOL HCL 20 MG/ 4 ML CARTRG IV ONE (13:55)
[2024-06-19] MEDS ORDERED: SODIUM CHLORIDE 0.9% 1,000 ML IV PRN (14:25)
[2024-06-19] MEDS ORDERED: ACETAMINOPHEN 325 MG/TAB PO PRN (14:25)
[2024-06-19] MEDS ORDERED: MAGNESIUM HYDROXIDE 30 ML UDC PO PRN (14:25)
[2024-06-19] MEDS ORDERED: DICYCLOMINE HCL 10 MG/CAP PO ONE (14:55)
[2024-06-19] MEDS ORDERED: hydrALAZINE HCL 20 MG/ML VIAL(1 ML) IV PRN (16:55)
[2024-06-19] MEDS ORDERED: LACTULOSE 20 GM/30 ML UDC PO SCH (17:00)
[2024-06-19] MEDS ORDERED: AMITRIPTYLINE HCL 25 MG TAB PO SCH (21:00)
[2024-06-19] MEDS ORDERED: LISINOPRIL 20 MG/TAB PO SCH (21:00)
[2024-06-19] MEDS ORDERED: ATENOLOL 50 MG/TAB PO SCH (21:00)
[2024-06-19] MEDS ORDERED: ENOXAPARIN SODIUM 30 MG/0.3 ML INJ SC SCH (21:00)
[2024-06-20 04:11] VITALS: BP 160/81
[2024-06-20 05:39] LABS: BASO% 0.8 % (0-3); EOS% 0.8 % (0-8); HEMOGLOBIN 12.4 g/dl (12.0-16.0); IMMATURE GRANULOCYTES 0.3 % (0.0-5.0); LYMPH% 21.5 % (15-41); MEAN CELL VOLUME 93.3 fL CALC (80.0-100.0); MEAN CORPUSCULAR HGB 29.7 pG CALC (26.0-32.0); MEAN CORPUSCULAR HGB CONC 31.8 g/dL CAL (32.0-36.0); MONO% 7.6 % (2-13); NEUT# 5.19 thou/uL (2.00-7.15); RED BLOOD COUNT 4.18 mill/uL (4.20-5.60); RED CELL DISTRI WIDTH 12.2 % (11.5-15.5)
[2024-06-20 05:56] LABS: ALBUMIN 3.3 g/dL (3.2-5.0); BILIRUBIN, TOTAL 0.6 mg/dL (0.02-1.3); CREATININE 0.7 mg/dL (0.5-1.0); POTASSIUM 3.1 mmol/l (3.5-5.1); TOTAL PROTEIN 5.8 g/dL (6.3-8.2)
[2024-06-20 06:00] LABS: MAGNESIUM 1.6 mg/dL (1.6-2.3)
[2024-06-20 07:05] VITALS: BP 188/95
[2024-06-20] MEDS ORDERED: ALPRAZolam 0.5 MG/TAB PO PRN (07:25)
[2024-06-20] MEDS ORDERED: MAGNESIUM CITRATE 296 ML/BTL PO SCH (08:00)
[2024-06-20] MEDS ORDERED: POTASSIUM CHLORIDE 20 MEQ/PKT POWDER PO SCH (08:00)
[2024-06-20] MEDS ORDERED: FUROSEMIDE 20 MG/TAB PO SCH (09:00)
[2024-06-20] MEDS ORDERED: DOCUSATE CALCIUM 240 MG/CAP PO SCH (09:00)
[2024-06-20] MEDS ORDERED: ASPIRIN 81 MG/TAB PO SCH (09:00)
[2024-06-20] MEDS ORDERED: PANTOPRAZOLE SODIUM Sesquihydr 40 MG/TAB PO SCH (09:00)
[2024-06-20 11:07] VITALS: BP 185/90
[2024-06-20 15:00] VITALS: BP 175/65
[2024-06-20 18:53] VITALS: BP 181/81
[2024-06-20 19:16] VITALS: BP 181/81
[2024-06-21 04:54] LABS: BASO% 0.6 % (0-3); HEMOGLOBIN 12.3 g/dl (12.0-16.0); IMMATURE GRANULOCYTES 0.1 % (0.0-5.0); LYMPH% 19.7 % (15-41); MEAN CELL VOLUME 93.3 fL CALC (80.0-100.0); MEAN CORPUSCULAR HGB 29.4 pG CALC (26.0-32.0); MEAN CORPUSCULAR HGB CONC 31.5 g/dL CAL (32.0-36.0); MONO% 7.4 % (2-13); NEUT# 7.21 thou/uL (2.00-7.15); NEUT% 71.2 % (42-76); RED BLOOD COUNT 4.18 mill/uL (4.20-5.60); RED CELL DISTRI WIDTH 12.4 % (11.5-15.5)
[2024-06-21 05:11] LABS: ALBUMIN 3.1 g/dL (3.2-5.0); BILIRUBIN, TOTAL 0.6 mg/dL (0.02-1.3); CREATININE 0.6 mg/dL (0.5-1.0); POTASSIUM 3.4 mmol/l (3.5-5.1); TOTAL PROTEIN 5.6 g/dL (6.3-8.2)
[2024-06-21 07:00] VITALS: BP 149/77
[2024-06-21 11:19] VITALS: BP 154/80
[2024-06-21] MEDS ORDERED: POTASSIUM CHLORIDE 20 MEQ/TAB PO SCH (12:00)
[2024-06-21] MEDS ORDERED: hydrALAZINE HCL 25 MG/TAB PO SCH (12:00)
[2024-06-21 15:24] VITALS: BP 168/89
[2024-06-21 19:06] VITALS: BP 170/82
[2024-06-22 00:17] VITALS: BP 154/77
[2024-06-22 03:59] VITALS: BP 150/71
[2024-06-22 07:50] VITALS: BP 156/78
[2024-06-22 08:01] VITALS: BP 156/78
[2024-06-22] MEDS ORDERED: HYDRALAZINE HYD25 MG PO (10:11)
== END 2024-06-22 11:53 | disposition home health service (06) ==
LOC: ED 11:42 → ED-I 12:34 → ED 12:34 → ED-I 13:40 → ED 14:14 → MS2 14:15
PROVIDERS: Family Medicine; Nurse Practitioner Family; ADMIT Internal Medicine; ATTEND Internal Medicine
PROC: 0T9B70Z Drainage of Bladder with Drainage Device, Via Natural or Artificial Opening (ICD-10-PCS; principal; 2024-06-19)
DX: K56.41 Fecal impaction (principal); R33.9 Retention of urine, unspecified; I16.0 Hypertensive urgency; N13.30 Unspecified hydronephrosis; I11.0 Hypertensive heart disease with heart failure; I50.9 Heart failure, unspecified; F03.90 Unspecified dementia, unspecified severity, without behavioral disturbance, psychotic disturbance, mood disturbance, and anxiety; F41.9 Anxiety disorder, unspecified; E78.5 Hyperlipidemia, unspecified; K44.9 Diaphragmatic hernia without obstruction or gangrene; K21.9 Gastro-esophageal reflux disease without esophagitis
CPT/HCPCS: G0378; J1650

== ENCOUNTER 2024-06-30 09:44 | Inpatient (IN) | payer MEDICARE ==
[~2024-06-30] VITALS: Ht 147.3 cm; Wt 40.6 kg
[2024-06-30] VITALS (14 sets, daily range): BP systolic 132–211; BP diastolic 73–107
[~2024-06-30 09:44] MED LIST changes: +HYDRALAZINE HYD25 MG PO
[2024-06-30 11:54] LABS: BASO% 0.9 % (0-3); EOS% 0.8 % (0-8); HEMATOCRIT 40.6 % (37.0-47.0); HEMOGLOBIN 12.8 g/dl (12.0-16.0); IMMATURE GRANULOCYTES 0.2 % (0.0-5.0); LYMPH% 21.2 % (15-41); MEAN CELL VOLUME 94.2 fL CALC (80.0-100.0); MEAN CORPUSCULAR HGB 29.7 pG CALC (26.0-32.0); MEAN CORPUSCULAR HGB CONC 31.5 g/dL CAL (32.0-36.0); MONO% 7.9 % (2-13); NEUT# 5.8 thou/uL (2.00-7.15); RED BLOOD COUNT 4.31 mill/uL (4.20-5.60); RED CELL DISTRI WIDTH 12.5 % (11.5-15.5)
[2024-06-30 12:59] LABS: CREATININE 0.8 mg/dL (0.5-1.0); POTASSIUM 3.7 mmol/l (3.5-5.1)
[2024-06-30] MEDS ORDERED: SODIUM CHLORIDE 0.9% 1,000 ML IV PRN (14:10)
[2024-06-30] MEDS ORDERED: MAGNESIUM HYDROXIDE 30 ML UDC PO PRN (14:10)
[2024-06-30] MEDS ORDERED: ACETAMINOPHEN 325 MG/TAB PO PRN (14:10)
[2024-06-30] MEDS ORDERED: hydrALAZINE HCL 20 MG/ML VIAL(1 ML) IV PRN (14:15)
[2024-06-30] MEDS ORDERED: ONDANSETRON HCl 4 MG/2 ML SDV IV PRN (14:15)
[2024-06-30] MEDS ORDERED: Polyethylene Glycol 3350 17 GM/PKT PO PRN (14:15)
[2024-06-30] MEDS ORDERED: DOCUSATE CALCIUM 240 MG/CAP PO PRN (14:20)
[2024-06-30] MEDS ORDERED: ALPRAZolam 0.5 MG/TAB PO PRN (14:20)
[2024-06-30] MEDS ORDERED: ALPRAZolam 0.25 MG PO PRN (14:48)
[2024-06-30] MEDS ORDERED: LACTULOSE 20 GM/30 ML UDC PO SCH (15:00)
[2024-06-30 15:39] LABS: URINE BILIRUBIN - DIPSTICK Negative (NEGATIVE); URINE BLOOD DIPSTICK Negative (NEGATIVE); URINE COLOR Yellow; URINE GLUCOSE - DIPSTICK Negative (NEGATIVE); URINE KETONE Negative (NEGATIVE); URINE LEUK ESTERASE Negative (NEGATIVE); URINE NITRITE - DIPSTICK Negative (Negative); URINE PH 8.5 (4.5-8.0); URINE PROTEIN - DIPSTICK Negative (NEG-TRACE); URINE SPECIFIC GRAVITY 1.015; URINE UROBILINOGEN - DIPSTICK 0.2 E.U./dL (0.2)
[2024-06-30] MEDS ORDERED: POT CHLORIDE10 ME5 PO (19:33)
[2024-06-30] MEDS ORDERED: LASIX20 MG PO (19:34)
[2024-06-30] MEDS ORDERED: ATENOLOL 50 MG/TAB PO SCH (21:00)
[2024-06-30] MEDS ORDERED: LISINOPRIL 20 MG/TAB PO SCH (21:00)
[2024-06-30] MEDS ORDERED: AMITRIPTYLINE HCL 25 MG TAB PO SCH (21:00)
[2024-06-30] MEDS ORDERED: ENOXAPARIN SODIUM 40 MG/0.4 ML SYR SC SCH (21:00)
[2024-06-30] MEDS ORDERED: hydrALAZINE HCL 25 MG/TAB PO SCH (21:00)
[2024-07-01 05:12] VITALS: BP 126/69
[2024-07-01 05:37] LABS: BASO% 0.9 % (0-3); HEMATOCRIT 39.9 % (37.0-47.0); HEMOGLOBIN 12.6 g/dl (12.0-16.0); IMMATURE GRANULOCYTES 0.2 % (0.0-5.0); LYMPH% 24.8 % (15-41); MEAN CELL VOLUME 93.4 fL CALC (80.0-100.0); MEAN CORPUSCULAR HGB 29.5 pG CALC (26.0-32.0); MEAN CORPUSCULAR HGB CONC 31.6 g/dL CAL (32.0-36.0); MONO% 7.5 % (2-13); NEUT# 5.28 thou/uL (2.00-7.15); NEUT% 65.6 % (42-76); RED BLOOD COUNT 4.27 mill/uL (4.20-5.60); RED CELL DISTRI WIDTH 12.4 % (11.5-15.5)
[2024-07-01 06:12] LABS: ALBUMIN 3.4 g/dL (3.2-5.0); BILIRUBIN, TOTAL 0.5 mg/dL (0.02-1.3); CREATININE 0.8 mg/dL (0.5-1.0); MAGNESIUM 2.2 mg/dL (1.6-2.3); TOTAL PROTEIN 6.1 g/dL (6.3-8.2)
[2024-07-01 07:25] VITALS: BP 179/87
[2024-07-01] MEDS ORDERED: FUROSEMIDE 20 MG/TAB PO SCH (09:00)
[2024-07-01] MEDS ORDERED: ASPIRIN 81 MG/TAB PO SCH (09:00)
[2024-07-01] MEDS ORDERED: PANTOPRAZOLE SODIUM Sesquihydr 40 MG/TAB PO SCH (09:00)
[2024-07-01] MEDS ORDERED: busPIRone HCL 5 MG/TAB PO SCH (10:00)
[2024-07-01 15:40] VITALS: BP 176/86
[2024-07-01] MEDS ORDERED: Peg 3350-POTASSIUM CHLORIDE-So 4,000 ML BTL PO SCH (17:00)
[2024-07-01 19:20] VITALS: BP 168/102
[2024-07-01] MEDS ORDERED: traMADol HCL 50 MG/TAB PO PRN (20:25)
[2024-07-01] MEDS ORDERED: DICYCLOMINE HCL 10 MG/CAP PO PRN (20:25)
[2024-07-01] MEDS ORDERED: DOCUSATE CALCIUM 240 MG/CAP PO SCH (21:00)
[2024-07-02] VITALS (7 sets, daily range): BP systolic 110–185; BP diastolic 58–91
[2024-07-02 05:40] LABS: BASO% 1.4 % (0-3); EOS% 2.3 % (0-8); HEMATOCRIT 39.8 % (37.0-47.0); HEMOGLOBIN 12.6 g/dl (12.0-16.0); IMMATURE GRANULOCYTES 0.2 % (0.0-5.0); LYMPH% 27.2 % (15-41); MEAN CELL VOLUME 93.2 fL CALC (80.0-100.0); MEAN CORPUSCULAR HGB 29.5 pG CALC (26.0-32.0); MEAN CORPUSCULAR HGB CONC 31.7 g/dL CAL (32.0-36.0); MONO% 9.9 % (2-13); NEUT# 3.9 thou/uL (2.00-7.15); RED BLOOD COUNT 4.27 mill/uL (4.20-5.60); RED CELL DISTRI WIDTH 12.5 % (11.5-15.5)
[2024-07-02 05:51] LABS: ALBUMIN 3.4 g/dL (3.2-5.0); BILIRUBIN, TOTAL 0.4 mg/dL (0.02-1.3); CREATININE 0.6 mg/dL (0.5-1.0); POTASSIUM 3.2 mmol/l (3.5-5.1); TOTAL PROTEIN 5.9 g/dL (6.3-8.2)
[2024-07-02] MEDS ORDERED: POTASSIUM CHLORIDE 20 MEQ/PKT POWDER PO SCH (09:00)
[2024-07-02] MEDS ORDERED: ENOXAPARIN SODIUM 30 MG/0.3 ML INJ SC SCH (21:00)
[2024-07-03] VITALS (12 sets, daily range): BP systolic 123–169; BP diastolic 67–86
[2024-07-03 05:37] LABS: EOS% 1.2 % (0-8); HEMATOCRIT 36.5 % (37.0-47.0); HEMOGLOBIN 11.6 g/dl (12.0-16.0); IMMATURE GRANULOCYTES 0.1 % (0.0-5.0); LYMPH% 25.1 % (15-41); MEAN CELL VOLUME 95.8 fL CALC (80.0-100.0); MEAN CORPUSCULAR HGB 30.4 pG CALC (26.0-32.0); MEAN CORPUSCULAR HGB CONC 31.8 g/dL CAL (32.0-36.0); MONO% 8.6 % (2-13); NEUT# 5.14 thou/uL (2.00-7.15); RED BLOOD COUNT 3.81 mill/uL (4.20-5.60); RED CELL DISTRI WIDTH 12.9 % (11.5-15.5)
[2024-07-03 05:52] LABS: ALBUMIN 3.1 g/dL (3.2-5.0); BILIRUBIN, TOTAL 0.5 mg/dL (0.02-1.3); CREATININE 0.6 mg/dL (0.5-1.0); POTASSIUM 3.4 mmol/l (3.5-5.1); TOTAL PROTEIN 5.5 g/dL (6.3-8.2)
[2024-07-03] MEDS ORDERED: SODIUM CHLORIDE 0.9% 1,000 ML IV ONE (09:47)
[2024-07-03] MEDS ORDERED: PROPOFOL 200 MG/20 ML VIAL IV ONE (15:10)
[2024-07-03] MEDS ORDERED: GLYCOPYRROLATE 0.2 MG/ML IV ONE (15:10)
[2024-07-03] MEDS ORDERED: LIDOCAINE HCL 2% 2ML SDV IV ONE (15:10)
[2024-07-04 03:46] VITALS: BP 153/78
[2024-07-04 03:56] VITALS: BP 109/67
[2024-07-04 04:30] VITALS: BP 123/78
[2024-07-04 06:40] LABS: EOS% 1.8 % (0-8); HEMOGLOBIN 11.4 g/dl (12.0-16.0); IMMATURE GRANULOCYTES 0.1 % (0.0-5.0); LYMPH% 16.4 % (15-41); MEAN CORPUSCULAR HGB 29.8 pG CALC (26.0-32.0); MEAN CORPUSCULAR HGB CONC 31.7 g/dL CAL (32.0-36.0); MONO% 7.2 % (2-13); NEUT# 6.49 thou/uL (2.00-7.15); NEUT% 73.5 % (42-76); RED BLOOD COUNT 3.83 mill/uL (4.20-5.60); RED CELL DISTRI WIDTH 12.9 % (11.5-15.5)
[2024-07-04 06:43] LABS: ALBUMIN 2.9 g/dL (3.2-5.0); BILIRUBIN, TOTAL 0.6 mg/dL (0.02-1.3); CREATININE 0.7 mg/dL (0.5-1.0); MAGNESIUM 1.6 mg/dL (1.6-2.3); POTASSIUM 2.8 mmol/l (3.5-5.1); TOTAL PROTEIN 5.3 g/dL (6.3-8.2)
[2024-07-04 07:25] VITALS: BP 149/72
[2024-07-04 07:32] VITALS: BP 149/72
[2024-07-04] MEDS ORDERED: POTASSIUM CHLORIDE 20 MEQ/PKT POWDER PO SCH (08:00)
[2024-07-04 08:05] VITALS: BP 149/72
[2024-07-04] MEDS ORDERED: BUSPAR5 M1 PO (11:08)
== END 2024-07-04 14:10 | disposition home health service (06) | DRG 392 ==
LOC: ED 09:44 → ED-I 13:50 → ED 14:03 → MS2 14:04
PROVIDERS: Family Medicine; Nurse Practitioner Family; ADMIT Student in an Organized Health Care Education/Training Program; ATTEND Student in an Organized Health Care Education/Training Program
PROC: 0T9B70Z Drainage of Bladder with Drainage Device, Via Natural or Artificial Opening (ICD-10-PCS; principal; 2024-06-30)
PROC: 0DJD8ZZ Inspection of Lower Intestinal Tract, Via Natural or Artificial Opening Endoscopic (ICD-10-PCS; 2024-07-03)
PROC: 0DJ08ZZ Inspection of Upper Intestinal Tract, Via Natural or Artificial Opening Endoscopic (ICD-10-PCS; 2024-07-03)
DX: K59.00 Constipation, unspecified (principal); N13.39 Other hydronephrosis; K50.10 Crohn's disease of large intestine without complications; R33.9 Retention of urine, unspecified; K64.8 Other hemorrhoids; K44.9 Diaphragmatic hernia without obstruction or gangrene; I11.0 Hypertensive heart disease with heart failure; I50.9 Heart failure, unspecified; I16.0 Hypertensive urgency; F03.90 Unspecified dementia, unspecified severity, without behavioral disturbance, psychotic disturbance, mood disturbance, and anxiety; F41.9 Anxiety disorder, unspecified; F32.A Depression, unspecified; E78.5 Hyperlipidemia, unspecified; Z20.822 Contact with and (suspected) exposure to COVID-19
CPT/HCPCS: J1650

== ENCOUNTER 2024-08-31 07:25 | Observation (INO) | payer MEDICARE ==
[~2024-08-31] VITALS: Ht 147.3 cm; Wt 42.4 kg
[2024-08-31] VITALS (18 sets, daily range): BP systolic 122–191; BP diastolic 68–100
[~2024-08-31 07:25] MED LIST changes: +BUSPAR5 M1 PO; +LASIX20 MG PO; +NITROFURANTOIN100 M1 PO
--- NOTE | 2024-08-31 07:25 | NUR ---
PT TO ER ROOM 12 VIA EMS.
[2024-08-31] MEDS ORDERED: ISOVUE-300 (Iopamidol) 100 ML SDV IV ONE (07:35)
[2024-08-31] MEDS ORDERED: ALPRAZolam 0.5 MG/TAB PO ONE (07:45)
[2024-08-31 08:03] LABS: URINE BILIRUBIN - DIPSTICK Negative (NEGATIVE); URINE BLOOD DIPSTICK Trace-intact (NEGATIVE); URINE GLUCOSE - DIPSTICK Negative (NEGATIVE); URINE KETONE Negative (NEGATIVE); URINE LEUK ESTERASE Negative (NEGATIVE); URINE NITRITE - DIPSTICK Negative (Negative); URINE PH 7.5 (4.5-8.0); URINE PROTEIN - DIPSTICK Negative (NEG-TRACE); URINE SPECIFIC GRAVITY 1.015; URINE UROBILINOGEN - DIPSTICK 0.2 E.U./dL (0.2)
[2024-08-31 08:04] LABS: BASO% 0.7 % (0-3); EOS% 0.8 % (0-8); HEMATOCRIT 46.3 % (37.0-47.0); IMMATURE GRANULOCYTES 0.2 % (0.0-5.0); LYMPH% 23.8 % (15-41); MEAN CELL VOLUME 91.9 fL CALC (80.0-100.0); MEAN CORPUSCULAR HGB 28.4 pG CALC (26.0-32.0); MEAN CORPUSCULAR HGB CONC 30.9 g/dL CAL (32.0-36.0); MONO% 7.3 % (2-13); NEUT# 6.38 thou/uL (2.00-7.15); NEUT% 67.2 % (42-76); RED BLOOD COUNT 5.04 mill/uL (4.20-5.60); RED CELL DISTRI WIDTH 12.9 % (11.5-15.5)
[2024-08-31 08:11] LABS: HEMOGLOBIN 14.3 g/dl (12.0-16.0)
[2024-08-31 08:12] LABS: URINE COLOR Yellow
[2024-08-31 08:13] LABS: CREATININE 0.8 mg/dL (0.5-1.0); POTASSIUM 3.8 mmol/l (3.5-5.1)
[2024-08-31] MEDS ORDERED: ONDANSETRON HCl 4 MG/2 ML SDV IV ONE (08:15)
[2024-08-31 08:25] LABS: ALBUMIN 4.3 g/dL (3.2-5.0); BILIRUBIN, TOTAL 0.6 mg/dL (0.02-1.3); TOTAL PROTEIN 7.3 g/dL (6.3-8.2)
[2024-08-31] MEDS ORDERED: KETOROLAC TROMETHAMINE 15 MG/ML SDV IV ONE (08:25)
--- NOTE | 2024-08-31 09:55 | NUR ---
PT AND FAMILY UPDATED ON STATUS.
[2024-08-31] MEDS ORDERED: ACETAMINOPHEN 325 MG/TAB PO PRN (10:00)
[2024-08-31] MEDS ORDERED: SODIUM CHLORIDE 0.9% 1,000 ML IV PRN (10:00)
[2024-08-31] MEDS ORDERED: LACTULOSE 20 GM/30 ML UDC PO SCH (10:00)
[2024-08-31] MEDS ORDERED: MAGNESIUM HYDROXIDE 30 ML UDC PO PRN (10:00)
[2024-08-31] MEDS ORDERED: LACTULOSE10 GM (10:11)
[2024-08-31] MEDS ORDERED: Polyethylene Glycol 3350 17 GM/PKT PO SCH (10:30)
--- NOTE | 2024-08-31 11:07 | NUR ---
RECEIVED PT FROM ER VIA STRETCHER TO ROOM 270 WITH DAUGHTER AT BEDSIDEIN ACCOMPANYMENT.PT ORIENTED TO ROOM, CALL LIGHT AND PHONE. POC AND ORDERS REVIEWED WITH DAUGHTER AND PT. ASSESSMENT COMPLETED. PT ESCOBAR FLUIDS, BUT HASNT HAD MUCH OF AN APPETITE RECENTLY AND HAS LOST 3 LBS. ABDOMEN FLAT AND SOFT WITH BS HYPOACTIVE. DENIES N/V. ROBBINS TO BSD WITH CLEAR YELLOW URINE. IVF STARTED TO LEFT FA WITH NS AT 100ML/HR. CALL LIGHT IN REACH.
--- NOTE | 2024-08-31 11:17 | NUR ---
patient vital signs, and weight; weight-42.3kg temp-97.3 p-72 resp-18 b/p-191/95 o2-98 room air nurse notified of patient blood pressure bed scale for weight, daughter refused to let staff assist patient on standing scale.
--- NOTE | 2024-08-31 11:21 | NUR ---
REPORT TO MARCOS MASTERSON. PT TRANSPORTED VIA CART TO ROOM 270. VSS. TRANSFERRED CARE OF PT.
--- NOTE | 2024-08-31 11:21 | NUR ---
DR ROBERTS ALREADY NOTIFIED BY ER STAFF
[2024-08-31] MEDS ORDERED: ALPRAZolam 0.25 MG PO PRN ×2 (12:30→14:55)
--- NOTE | 2024-08-31 13:52 | NUR ---
PT RESTING IN BED WITH EYES CLOSED AND RESP AT EASE. BED ALARM IN PLACE AND CALL LIGHT IN REACH. WILL MONITOR.
[2024-08-31] MEDS ORDERED: busPIRone HCL 5 MG/TAB PO SCH ×2 (14:56→21:00)
[2024-08-31] MEDS ORDERED: PANTOPRAZOLE SODIUM Sesquihydr 40 MG/TAB PO SCH (14:57)
[2024-08-31] MEDS ORDERED: ATENOLOL 50 MG/TAB PO SCH ×2 (15:00→21:00)
[2024-08-31] MEDS ORDERED: ONDANSETRON HCl 4 MG/2 ML SDV IV PRN (15:00)
--- NOTE | 2024-08-31 16:51 | NUR ---
PT CONTINUES TO REST AT BEDSIDE WITH DAUGHTER AT BEDSIDE WELL. DAUGHTER INSISTANT FOR PT TO RECEIVE HER BP MEDS AND ANTIANXIETY MEDS PRIOR TO DUE TIME. DR. LYN CALLED AND MEDS ORDERED AND GIVEN ALONG WITH ZOFRAN FOR MILD COMPLAINTS OF NAUSEA.CALL LIGHT REMAINS IN REACH AND BED ALARM IN PLACE.
--- NOTE | 2024-08-31 20:12 | NUR ---
PT RECEIVED IN BED IN STABLE CONDITION. A/O X 3. NO S/S OF DISTRESS. ROOM AIR. ROBBINS CATH IN PLACE AND PATENT. IV TO LAC WITH NS AT 100ML/HR. CALL GONZALEZ IN REACH. WILL CONTINUE TO MONITOR.
[2024-08-31] MEDS ORDERED: AMITRIPTYLINE HCL 25 MG TAB PO SCH (21:00)
[2024-08-31] MEDS ORDERED: ENOXAPARIN SODIUM 40 MG/0.4 ML SYR SC SCH (21:00)
[2024-08-31] MEDS ORDERED: LISINOPRIL 20 MG/TAB PO SCH (21:00)
[2024-09-01] VITALS (10 sets, daily range): BP systolic 122–175; BP diastolic 59–97
--- NOTE | 2024-09-01 08:45 | NUR ---
PATIENT A/O X3; ROOM AIR; BREATHING UNLABORED AND EVEN; DENIED ANY PAIN; DENIED ANY N/D/V AT THIS TIME; ROBBINS WORKING WITH NO ISSUES; NO S.S OF DISTRES; PATEINT LAYING IN A LOW SEMI FOLWER POSTION WITH NO ISSUES; IV SITE CLEAN AND INTACT RUNNING WITH NS @100; NO COMPLAINTS AT THIS TIME; PATIENT STATES SHE HAD A BOWEL MOVEMENT WITHIN THE NIGHT; CALL LIGHT WITHIN REACH; VERBALIZED UNDERSTANDING ON HOW TO USE; PERSONAL ITEMS WITHIN REACH; BED IN LOWEST POSTION;SAFEY MEASURES IN PLACE
[2024-09-01] MEDS ORDERED: PANTOPRAZOLE SODIUM Sesquihydr 40 MG/TAB PO SCH (09:00)
[2024-09-01] MEDS ORDERED: ASPIRIN 81 MG/TAB PO SCH (09:00)
--- NOTE | 2024-09-01 09:52 | NUR ---
PATIENT BLOOD PRESSURE WAS ELEVATED; MEDICATED PER EMAR RECHECKED BLOOD PRESURE, PRESSURE BACK WITHIN NORMAL RANGE
--- NOTE | 2024-09-01 12:37 | NUR ---
JAMAL IN ROOM; DENIED ANY PAIN; DENIED ANY N/D/V AT THIS TIME; FMAILY IN ROOM ; ITZEL WORKING WITH NOISSUES; IV SITE CLEAN AND INTACT RUNNING WITH NS @100; NO SS OF DISTRESS; NO COMPLAINTS AT THIS TTIME; CALL IGHTW ITHIN REACH; VERBALIZED UNDERSTANDING ON HOW TO USE, PERSONAL ITEMS WITHIN REACH BED IN LOWEST POSTION SAFETY MEASURES IN PLACE
--- NOTE | 2024-09-01 16:43 | NUR ---
PATIENT A/O X3; ROOM AIR; BREATHING UNLABORED; DAUGHTER IN ROOM WITH PATINET; DENIED ANY PAIN; DNEIED ANY N/D/V AT THIS TIME; NO S.S OF DISTRESS; CALL [facility]; BED IN LOWEST POSTION; NO COMPLAINTS AT THIS TIEM; CALL [facility],VERBALIZED UNDERSTADNING ON HOW TO USE, PERSONAL ITEMS WITHIN REACHL BED IN LOWEST POSTION
--- NOTE | 2024-09-01 19:48 | NUR ---
PATIENT RESTING IN BED QUIETLY. ALERT AND ORIENTED X3. ASSESSMENT COMPLETE. URINARY CATHETER TO GRAVITY, CLEAR YELLOW URINE. REPORTS ABDOMINAL PAIN 3/, NO OTHER CONCERNS EXPRESSED. BED IN LOW POSITION, LOCKED; ALARM ACTIVATED. CALL LIGHT WITHIN REACH.
[2024-09-01] MEDS ORDERED: busPIRone HCL 5 MG/TAB PO SCH (21:00)
[2024-09-01] MEDS ORDERED: ENOXAPARIN SODIUM 30 MG/0.3 ML INJ SC SCH (21:00)
[2024-09-02] VITALS: BP 158/83
[2024-09-02 00:14] VITALS: BP 158/83
[2024-09-02 03:52] VITALS: BP 139/68
[2024-09-02 04:00] VITALS: BP 139/68
[2024-09-02 05:18] LABS: BASO% 0.8 % (0-3); EOS% 2.6 % (0-8); IMMATURE GRANULOCYTES 0.3 % (0.0-5.0); LYMPH% 24.2 % (15-41); MEAN CELL VOLUME 93.4 fL CALC (80.0-100.0); MEAN CORPUSCULAR HGB 28.6 pG CALC (26.0-32.0); MEAN CORPUSCULAR HGB CONC 30.6 g/dL CAL (32.0-36.0); MONO% 9.8 % (2-13); NEUT# 4.72 thou/uL (2.00-7.15); NEUT% 62.3 % (42-76); RED BLOOD COUNT 3.95 mill/uL (4.20-5.60); RED CELL DISTRI WIDTH 13.3 % (11.5-15.5)
[2024-09-02 05:20] LABS: HEMATOCRIT 36.9 % (37.0-47.0); HEMOGLOBIN 11.3 g/dl (12.0-16.0)
[2024-09-02 05:46] LABS: CREATININE 0.6 mg/dL (0.5-1.0); MAGNESIUM 1.9 mg/dL (1.6-2.3); POTASSIUM 3.5 mmol/l (3.5-5.1)
[2024-09-02 05:52] LABS: ALBUMIN 2.6 g/dL (3.2-5.0); BILIRUBIN, TOTAL 0.2 mg/dL (0.02-1.3)
[2024-09-02 07:21] VITALS: BP 188/91
--- NOTE | 2024-09-02 07:35 | NUR ---
PT SITTING UP IN BED AWAKE, PT A&O X3, PUPILS PERRL, RESP. EVEN AND UNLABORED, LUNG SOUNDS ARE CLEAR, NORMAL S1 S2 HEART SOUNDS, TELE MONITOR IN PLACE, ABD DISTENDED AND SOFT WITH ACTIVE BOWEL SOUNDS, STRONG RADIAL AND PEDAL PULSES, 20G LAC IV WITH FLUIDS INFUSING AT PRESCRIBED RATE, SAFETY MEASURES REINFORCED, CALL GONZALEZ WITHIN REACH
--- NOTE | 2024-09-02 09:40 | NUR ---
PT'S DAUGHTER AT BEDSIDE
--- NOTE | 2024-09-02 10:19 | NUR ---
DR BOLTON AT BEDSIDE DISCUSSING PLAN OF CARE
[2024-09-02 10:58] VITALS: BP 181/81
[2024-09-02] MEDS ORDERED: DICYCLOMINE HCL 10 MG/CAP PO SCH (11:00)
--- NOTE | 2024-09-02 11:54 | NUR ---
PT MANAGER PROPOSAL LIGHT MULTIPLE TIMES IN A SHORT TIME WANTING SOMEONE TO CHECK TO SEE IF SHE HAS HAD A BOWEL MOVEMENT, PT IS CLEAN AND DID NOT HAVE A BOWEL MOVEMENT IN THE BED
--- NOTE | 2024-09-02 12:00 | NUR ---
PT SITTING UP IN THE BED, PT IS PUSHING ON HER ABD AND STATING SHE IS HAVING "BELLY PAIN", MD IS AWARE AND ORDERS ARE ALREADY IN PLACE, SAFETY MEASURES REINFORCED, CALL GONZALZE WITHIN REACH
[2024-09-02] MEDS ORDERED: hydrALAZINE HCL 20 MG/ML VIAL(1 ML) IV PRN (12:25)
[2024-09-02] MEDS ORDERED: DICYCLOMINE HYD10 MG PO (12:46)
--- NOTE | 2024-09-02 13:53 | NUR ---
Discharge instructions given. Patient verbalizes understanding of same. Discharged in stable condition via Wheelchair to Home with family. All belongings sent with pt.
[2024-09-02] MEDS ORDERED: BUSPAR5 M1 PO (14:27)
[2024-09-02] MEDS ORDERED: DICYCLOMINE HCL 10 MG/CAP PO PRN (16:00)
--- NOTE | 2024-09-08 11:17 | NUR ---
Discharge follow up call completed 09/08/24. Pt states she has good and bad days. She has medication for the abdominal discomfort and takes it as directed. Pt. saw her PCP las week. No needs or concerns to be addressed at this time per patient.
== END 2024-09-02 13:52 | disposition home or self-care (01) ==
LOC: ED 07:25 → ED-I 09:20 → MS2 10:00 → ED 10:00 → MS2 09-02 13:52
PROVIDERS: Family Medicine; Nurse Practitioner Family; ADMIT Internal Medicine; ATTEND Internal Medicine
PROC: 0T9B70Z Drainage of Bladder with Drainage Device, Via Natural or Artificial Opening (ICD-10-PCS; principal; 2024-08-31)
DX: K56.0 Paralytic ileus (principal); K59.04 Chronic idiopathic constipation; I11.0 Hypertensive heart disease with heart failure; I50.9 Heart failure, unspecified; F03.90 Unspecified dementia, unspecified severity, without behavioral disturbance, psychotic disturbance, mood disturbance, and anxiety; R33.9 Retention of urine, unspecified; F41.9 Anxiety disorder, unspecified; F32.A Depression, unspecified
CPT/HCPCS: G0378; J1650

== ENCOUNTER 2024-10-16 11:13 | Emergency (ER) | payer MEDICARE ==
[~2024-10-16] VITALS: Ht 147.3 cm; Wt 41.0 kg
[2024-10-16] VITALS (8 sets, daily range): BP systolic 146–207; BP diastolic 75–137
[~2024-10-16 11:13] MED LIST changes: +DICYCLOMINE HYD10 MG PO; +LACTULOSE10 GM
[2024-10-16 12:58] LABS: BASO% 0.8 % (0-3); EOS% 0.8 % (0-8); HEMATOCRIT 43.4 % (37.0-47.0); HEMOGLOBIN 13.6 g/dl (12.0-16.0); IMMATURE GRANULOCYTES 0.1 % (0.0-5.0); LYMPH% 29.4 % (15-41); MEAN CELL VOLUME 89.7 fL CALC (80.0-100.0); MEAN CORPUSCULAR HGB 28.1 pG CALC (26.0-32.0); MEAN CORPUSCULAR HGB CONC 31.3 g/dL CAL (32.0-36.0); MONO% 8.9 % (2-13); NEUT# 5.08 thou/uL (2.00-7.15); RED BLOOD COUNT 4.84 mill/uL (4.20-5.60); RED CELL DISTRI WIDTH 13.4 % (11.5-15.5)
[2024-10-16 13:25] LABS: URINE BILIRUBIN - DIPSTICK Negative (NEGATIVE); URINE BLOOD DIPSTICK Negative (NEGATIVE); URINE GLUCOSE - DIPSTICK Negative (NEGATIVE); URINE KETONE Negative (NEGATIVE); URINE NITRITE - DIPSTICK Negative (Negative); URINE PH 6.5 (4.5-8.0); URINE PROTEIN - DIPSTICK Negative (NEG-TRACE); URINE UROBILINOGEN - DIPSTICK 0.2 E.U./dL (0.2)
[2024-10-16 13:27] LABS: URINE COLOR Yellow
[2024-10-16 13:28] LABS: URINE LEUK ESTERASE Small (NEGATIVE)
[2024-10-16 13:37] LABS: URINE RBC 0-2 RBC/hpf (0-5); URINE WBC 0-2 WBC/hpf (0-5)
[2024-10-16 13:38] LABS: URINE HYALINE CAST FEW lpf (NONE-RARE); URINE SQUAMOUS EPITHELIAL CELL FEW EPI/hpf (0-FEW)
[2024-10-16 14:06] LABS: CREATININE 0.8 mg/dL (0.5-1.0); POTASSIUM 4.2 mmol/l (3.5-5.1)
[2024-10-16 14:14] LABS: ALBUMIN 3.6 g/dL (3.2-5.0); BILIRUBIN, TOTAL 0.4 mg/dL (0.02-1.3); TOTAL PROTEIN 6.1 g/dL (6.3-8.2)
[2024-10-16] MEDS ORDERED: SODIUM CHLORIDE 0.9% 1,000 ML IV ONE (14:30)
[2024-10-16] MEDS ORDERED: KETOROLAC TROMETHAMINE 15 MG/ML SDV IV ONE (14:30)
[2024-10-16] MEDS ORDERED: Polyethylene Glycol 3350 17 GM/PKT PO ONE (14:55)
[2024-10-16] MEDS ORDERED: MIRALAX17 GM PO (15:17)
[2024-10-16] MEDS ORDERED: DICYCLOMINE HYD10 MG PO (15:17)
[2024-10-16] MEDS ORDERED: ALPRAZolam 0.5 MG/TAB PO ONE (15:25)
== END 2024-10-16 15:45 | disposition home or self-care (01) ==
LOC: ED 11:13
PROVIDERS: Emergency Medicine; Nurse Practitioner
DX: K59.09 Other constipation (principal); I11.0 Hypertensive heart disease with heart failure; I50.9 Heart failure, unspecified; F03.90 Unspecified dementia, unspecified severity, without behavioral disturbance, psychotic disturbance, mood disturbance, and anxiety; F41.9 Anxiety disorder, unspecified; F32.A Depression, unspecified
CPT/HCPCS: J1885

== ENCOUNTER 2024-10-21 08:22 | Emergency (ER) | payer MEDICARE ==
[2024-10-21] VITALS (14 sets, daily range): BP systolic 142–201; BP diastolic 83–105
[~2024-10-21] VITALS: Ht 147.3 cm; Wt 40.8 kg
[2024-10-21] MEDS ORDERED: KETOROLAC TROMETHAMINE 15 MG/ML SDV IV ONE (08:40)
[2024-10-21] MEDS ORDERED: ONDANSETRON HCl 4 MG/2 ML SDV IV ONE (08:40)
[2024-10-21 08:58] LABS: BASO% 1.1 % (0-3); EOS% 0.9 % (0-8); HEMATOCRIT 41.6 % (37.0-47.0); HEMOGLOBIN 12.8 g/dl (12.0-16.0); IMMATURE GRANULOCYTES 0.1 % (0.0-5.0); MEAN CELL VOLUME 89.8 fL CALC (80.0-100.0); MEAN CORPUSCULAR HGB 27.6 pG CALC (26.0-32.0); MEAN CORPUSCULAR HGB CONC 30.8 g/dL CAL (32.0-36.0); MONO% 5.8 % (2-13); NEUT# 5.45 thou/uL (2.00-7.15); NEUT% 64.1 % (42-76); RED BLOOD COUNT 4.63 mill/uL (4.20-5.60); RED CELL DISTRI WIDTH 13.1 % (11.5-15.5)
[2024-10-21 09:11] LABS: ALBUMIN 4.1 g/dL (3.2-5.0); ALKALINE PHOSPHATASE 139 u/l (38-126); ANION GAP 12 (6-22 (CALC)); BUN 12 mg/dL (8-23); BUN/CREATININE RATIO 15 (12-20 (CALC)); CARBON DIOXIDE 32 mmol/l (22-30); CHLORIDE 98 mmol/l (95-108); CREATININE 0.8 mg/dL (0.5-1.0); ESTIMATED GFR 73 ML/MIN (>=90 (CALC)); LIPASE 48 u/l (23-300); POTASSIUM 4.3 mmol/l (3.5-5.1); SGOT/AST 58 u/l (9-36); SODIUM 137 mmol/l (137-146); TOTAL PROTEIN 6.8 g/dL (6.3-8.2)
[2024-10-21 09:24] LABS: BILIRUBIN, TOTAL 0.7 mg/dL (0.02-1.3)
[2024-10-21 11:16] LABS: URINE BILIRUBIN - DIPSTICK Negative (NEGATIVE); URINE BLOOD DIPSTICK Negative (NEGATIVE); URINE GLUCOSE - DIPSTICK Negative (NEGATIVE); URINE KETONE Negative (NEGATIVE); URINE LEUK ESTERASE Negative (NEGATIVE); URINE NITRITE - DIPSTICK Negative (Negative); URINE PH 8.5 (4.5-8.0); URINE PROTEIN - DIPSTICK Negative (NEG-TRACE); URINE UROBILINOGEN - DIPSTICK 0.2 E.U./dL (0.2)
[2024-10-21 11:17] LABS: URINE COLOR Yellow
== END 2024-10-21 12:47 | disposition home or self-care (01) ==
LOC: ED 08:22
PROVIDERS: Family Medicine
DX: R10.84 Generalized abdominal pain (principal); E78.5 Hyperlipidemia, unspecified; F41.9 Anxiety disorder, unspecified; F32.A Depression, unspecified; I11.0 Hypertensive heart disease with heart failure; I50.9 Heart failure, unspecified; F03.90 Unspecified dementia, unspecified severity, without behavioral disturbance, psychotic disturbance, mood disturbance, and anxiety
CPT/HCPCS: J1885; J2405

== ENCOUNTER 2024-10-24 09:55 | Emergency (ER) | payer MEDICARE ==
[2024-10-24] VITALS (7 sets, daily range): BP systolic 158–199; BP diastolic 81–109
[~2024-10-24] VITALS: Ht 147.3 cm; Wt 44.5 kg
[2024-10-24] MEDS ORDERED: KETOROLAC TROMETHAMINE 30 MG/ML SDV IV ONE (10:20)
[2024-10-24] MEDS ORDERED: SODIUM CHLORIDE 0.9% 1,000 ML IV ONE (10:20)
== END 2024-10-24 13:40 | disposition home or self-care (01) ==
LOC: ED 09:55
DX: R10.84 Generalized abdominal pain (principal); M54.2 Cervicalgia; M79.604 Pain in right leg; I11.0 Hypertensive heart disease with heart failure; I50.9 Heart failure, unspecified; F41.9 Anxiety disorder, unspecified; F32.A Depression, unspecified; F03.90 Unspecified dementia, unspecified severity, without behavioral disturbance, psychotic disturbance, mood disturbance, and anxiety; Z91.81 History of falling

== ENCOUNTER 2024-11-11 11:41 | Emergency (ER) | payer MEDICARE ==
[2024-11-11] VITALS (18 sets, daily range): BP systolic 157–212; BP diastolic 78–113
[~2024-11-11] VITALS: Ht 147.3 cm; Wt 39.0 kg
[2024-11-11] MEDS ORDERED: LABETALOL HCL 20 MG/ 4 ML CARTRG IV ONE (13:00)
[2024-11-11] MEDS ORDERED: DICYCLOMINE HCL 20 MG/2 ML VIAL IM ONE (13:00)
[2024-11-11 13:16] LABS: BASO% 0.8 % (0-3); EOS% 0.8 % (0-8); HEMATOCRIT 43.1 % (37.0-47.0); HEMOGLOBIN 13.3 g/dl (12.0-16.0); IMMATURE GRANULOCYTES 0.1 % (0.0-5.0); LYMPH% 35.1 % (15-41); MEAN CELL VOLUME 90.4 fL CALC (80.0-100.0); MEAN CORPUSCULAR HGB 27.9 pG CALC (26.0-32.0); MEAN CORPUSCULAR HGB CONC 30.9 g/dL CAL (32.0-36.0); MONO% 6.6 % (2-13); NEUT# 5.53 thou/uL (2.00-7.15); NEUT% 56.6 % (42-76); RED BLOOD COUNT 4.77 mill/uL (4.20-5.60); RED CELL DISTRI WIDTH 13.3 % (11.5-15.5)
[2024-11-11 13:34] LABS: ALBUMIN 4.4 g/dL (3.2-5.0); BILIRUBIN, TOTAL 0.6 mg/dL (0.02-1.3); CREATININE 0.9 mg/dL (0.5-1.0); POTASSIUM 4.5 mmol/l (3.5-5.1); TOTAL PROTEIN 7.1 g/dL (6.3-8.2)
[2024-11-11 15:04] LABS: URINE BILIRUBIN - DIPSTICK Negative (NEGATIVE); URINE BLOOD DIPSTICK Negative (NEGATIVE); URINE GLUCOSE - DIPSTICK Negative (NEGATIVE); URINE KETONE Negative (NEGATIVE); URINE NITRITE - DIPSTICK Negative (Negative); URINE PH 7.5 (4.5-8.0); URINE PROTEIN - DIPSTICK Negative (NEG-TRACE); URINE SPECIFIC GRAVITY 1.015; URINE UROBILINOGEN - DIPSTICK 0.2 E.U./dL (0.2)
[2024-11-11 15:06] LABS: URINE COLOR Yellow; URINE LEUK ESTERASE Small (NEGATIVE)
[2024-11-11 15:12] LABS: URINE RBC 0-2 RBC/hpf (0-5); URINE WBC 0-2 WBC/hpf (0-5)
[2024-11-11] MEDS ORDERED: MAGNESIUM HYDROXIDE 30 ML UDC PO ONE (15:50)
[2024-11-11] MEDS ORDERED: Polyethylene Glycol 3350 17 GM/PKT PO ONE (15:50)
[2024-11-11] MEDS ORDERED: LACTULOSE 20 GM/30 ML UDC PO ONE (15:50)
[2024-11-11] MEDS ORDERED: traMADol HCL 50 MG/TAB PO ONE (15:50)
[2024-11-11] MEDS ORDERED: GOLYTELY PO (16:17)
== END 2024-11-11 16:30 | disposition home or self-care (01) ==
LOC: ED 11:41
PROVIDERS: Nurse Practitioner
DX: K59.09 Other constipation (principal); I11.0 Hypertensive heart disease with heart failure; I50.9 Heart failure, unspecified; K21.9 Gastro-esophageal reflux disease without esophagitis; F03.90 Unspecified dementia, unspecified severity, without behavioral disturbance, psychotic disturbance, mood disturbance, and anxiety; F41.9 Anxiety disorder, unspecified
CPT/HCPCS: J0500